=== PATIENT | female | born 1985 | race African-American/Black ===

== ENCOUNTER 2021-12-02 10:15 | Outpatient (CLI) | payer MEDICARE, BC, SELFPAY | END 2021-12-02 10:16 | disposition home or self-care (01) | LOC: AMB 12-12 11:22 | PROVIDERS: PCP Family Medicine; Visit Provider Family Medicine | DX: R53.1 Weakness (principal); E11.65 Type 2 diabetes mellitus with hyperglycemia | CPT/HCPCS: A0425; A0429 ==

== ENCOUNTER 2021-12-02 10:41 | Inpatient (IN) | payer MEDICARE, BC, SELFPAY ==
[2021-12-02] VITALS (27 sets, daily range): BP systolic 97–130; BP diastolic 27–95; PULSE 103–141; RESP 20–30; TEMP 36.1; O2SAT 99–100; BMI 23.8; BMI 21.8
--- NOTE | 2021-12-02 11:04 | CRLHL7_ITS ---
For Patients: As a result of the Cures Act, medical imaging exams and procedure reports are released immediately into your electronic medical record. You may view this report before your referring provider. If you have questions, please contact your health care provider. INDICATION: Shortness of breath TECHNIQUE: Chest 1 view. COMPARISON: None FINDINGS: The heart is normal in size. The pulmonary vasculature is within normal limits. The lungs clear. Bones are unremarkable. IMPRESSION: No acute process. Dictated by Bonny Frederick MD @ 12/02/2021 12:19:16 PM Dictated by: Bonny Frederick MD @ 12/02/2021 12:19:24 (Electronically Signed)
[2021-12-02] MEDS: 0.9 % SODIUM CHLORIDE 1000 ml 1,000 ML IV ×3 (11:08→15:15)
[2021-12-02] MEDS: METOCLOPRAMIDE HCL 10 MG in 0.9 % SODIUM CHLORIDE 100 ml 100 ML 306 MG IVPB (11:28)
[2021-12-02 11:29] LABS: HCO3 VBG 11 mmol/L (21-28); PCO2 VBG 35 mmHG (40-50); PO2 VBG 45.4 mmHG (25-47)
[2021-12-02 11:32] LABS: Appearance Urine Clear (Clear); Bilirubin Urine Negative (Negative); Blood Urine Negative (Negative); Color Urine Yellow (Yellow); Glucose Urine 2+ (Negative); Ketones Urine 4+ (Negative); Leukocyte Esterase Urine Negative (Negative); Nitrite Urine Negative (Negative); Protein Urine Negative (Negative); Specific Gravity Urine 1.015 (1.000-1.030); Urobilinogen Urine 0.2 (0.2-1.0); pH Urine 5.5 (5.0-8.5)
[2021-12-02 11:32] LABS: Basophils Percent Auto 0.4 % (0.0-3.0); Eosinophils Percent Auto 0.3 % (0.0-7.0); Hematocrit 36.8 % (33.0-51.0); Hemoglobin* 12.3 gm/dL (12.0-16.0); Immature Granulocytes Abs Auto 0.23 K/uL (0.00-0.30); Lymphocytes Percent Auto 30.1 % (20-44); Mean Corpuscular HGB Conc 33 gm/dL (32-36); Mean Corpuscular Hemoglobin 31 pg (26-34); Mean Corpuscular Volume 92 fL (80-100); Monocytes Percent Auto 2.4 % (0.0-11.0); Neutrophils Percent Auto 65.4 % (42.0-72.0); Platelet Count* 414 K/uL (140-440); Red Blood Count 4.02 m/uL (4.00-5.20); White Blood Count* 16.03 K/uL (4.50-11.00)
--- NOTE | 2021-12-02 11:35 | ED.GENADULT ---
HPI - General Adult General Date Seen: 12/02/21 Chief complaint: Diabetic Related Problem Stated complaint: blood sugar Time Seen by Provider: 12/02/21 11:03 Source: patient Limitations: altered mental status History of Present Illness HPI narrative: Patient is a 36-year-old woman with underlying insulin-dependent diabetes who presents feeling poorly. She has not checked her sugar she says for about 2 weeks, does not sound like she has used insulin for at least that long. She is a poor historian, looks extremely ill. Denies specific symptoms, is actively vomiting. Denies pain or fever. Is somnolent and does not provide much more history than that. Related Data Home Medications Medication Instructions Recorded Confirmed cyclobenzaprine 5 mg tablet 5 mg PO TID PRN 12/02/21 12/02/21 duloxetine 60 mg capsule,delayed 120 mg PO DAILY 12/02/21 12/02/21 release hydroxyzine HCl 25 mg tablet mg 12/02/21 insulin aspart U-100 100 unit/mL See Rx Instructions subcut .COMPLEX 12/02/21 12/02/21 (3 mL) subcutaneous pen insulin glargine 100 unit/mL (3 12 unit subcut BID 12/02/21 12/02/21 mL) subcutaneous pen (Lantus Solostar U-100 Insulin) Allergies Allergy/AdvReac Type Severity Reaction Status Date / Time No Known Drug Allergies Allergy Verified 12/02/21 11:06 Review of Systems Status of ROS: Reports: unobtainable due to medical condition [facility] Medical History (Updated 12/02/21 @ 14:38 by Funmilayo Benitez MD) Chronic midline low back pain with bilateral sciatica COVID-19 vaccine administered Depressed mood Gastroparesis Myopia of both eyes with astigmatism Noncompliance Pap smear for cervical cancer screening Severe malnutrition due to type 1 diabetes mellitus Uncontrolled type 1 diabetes mellitus Surgical History (Updated 12/02/21 @ 14:35 by Funmilayo Benitez MD) History of esophagogastroduodenoscopy (EGD) Exam Narrative: Exam Narrative: Vital signs as noted above. In general, somnolent ill-appearing woman. Smells strongly ketotic. Head: Normocephalic, atraumatic. Eyes: Pupils are equal reactive. Conjunctivae are anicteric. ENT: Mucous membranes are dry. Neck: Supple without lymphadenopathy. No meningeal signs. Heart: Tachycardic and regular. No murmur or rub. Lungs: Clear bilaterally. No increased work of breathing, crackles or wheezes. Abdomen: Soft and nontender. No organomegaly. Extremities: Well perfused. No edema. No calf tenderness. Pulses intact. Neurologic: Patient is somnolent, I am able to arouse her and she will answer a question or 2 at a time. Follows commands. Moves all extremities. Affect: Flat. Skin: Warm and dry. Well perfused. Const: Vital Signs, click to edit/add: Vital Signs - 24 hr 12/02/21 10:51 Pulse Rate [Left P ulse Oximeter] 115 H Respiratory Rate 20 Blood Pressure [Ri ght Upper Arm] 119/77 Pulse Oximetry 100 Oxygen Delivery Me thod Room Air Documenting provider has reviewed patient's vital signs: yes Course Course Hospital Course: An IV was immediately established and she was started on normal saline initially 1 L. An EKG showed a sinus tachycardia by my review, ventricular rate of 108 beats per minute. No acute ST segment changes. QT corrected 479 milliseconds. An initial blood sugar was too high for the glucometer. She had been given Zofran IM, and was continuing to vomit so she was given Reglan 10 mg IV. Labs including a CBC, venous gas, metabolic panel, magnesium, LFTs, CRP, troponin and a UA are all ordered. Thus far, urinalysis shows 2+ glucose and 4+ ketones. Her breath does smell strongly ketotic, clinically would suspect at least significant diabetic ketoacidosis, cause likely in part due to medical noncompliance, other potential causes pending. Reevaluation(s) Reevaluation #1: Patient felt significantly improved after L of fluid, she is more alert. First labs to come back or CBC which showed an elevated white blood cell count of 16, hemoglobin of 12.3. Blood gas showed a pH of 7.125, pCO2 of 35 and a venous bicarb of 11 representing a metabolic acidosis and compensatory respiratory alkalosis. Lactate was elevated at 4. Liver function tests showed an AST of 54, ALT of 31. Alk-phos minimally elevated at 157. Troponin was normal. CRP was 0.5. I waited on her metabolic panel before starting plan, to confirm that her potassium was normal. It turned at 4.8. CO2 markedly low at 9. BUN and creatinine were normal. I started a 2nd L of fluid at maintenance rates and then started an insulin drip at 6 units an hour. Patient actually requested a subcu dose of insulin because she says it helps her feel better, so I gave her 10 units of regular insulin subQ as well. She has been hemodynamically stable, level of alertness is increased with IV fluids here. I think it is reasonable to keep her here for management of this. I talked with Dr. Huitron and he agrees with admission here. Vital Signs Vital signs: Initial Vital Signs Pulse Rate 115 H 12/02/21 10:51 Pulse Rhythm 12/02/21 10:51 Pulse Strength 3+ Normal 12/02/21 10:51 Respiratory Rate 20 12/02/21 10:51 Blood Pressure 119/77 12/02/21 10:51 Blood Pressure Mean 91 12/02/21 10:51 Blood Pressure Position Supine 12/02/21 10:51 Pulse Oximetry 100 12/02/21 10:51 Oxygen Delivery Method 12/02/21 10:51 Vital Signs Pulse Rate 115 H 12/02/21 10:51 Respiratory Rate 20 12/02/21 10:51 Blood Pressure 119/77 12/02/21 10:51 Pulse Oximetry 100 12/02/21 10:51 Oxygen Delivery Method 12/02/21 10:51 Pulse Rate 115 H 12/02/21 10:51 Respiratory Rate 20 12/02/21 10:51 Blood Pressure 119/77 12/02/21 10:51 Pulse Oximetry 100 12/02/21 10:51 Oxygen Delivery Method 12/02/21 10:51 Medical Decision Making Lab Data Labs: Lab Results 12/02/21 12/02/21 12/02/21 Range/Units 11:05 11:20 11:20 WBC 16.03 H (4.50-11.00) K/uL RBC 4.02 (4.00-5.20) m/uL Hgb 12.3 (12.0-16.0) gm/dL Hct 36.8 (33.0-51.0) % MCV 92 (80-100) fL MCH 31 (26-34) pg MCHC 33 (32-36) gm/dL RDW Coeff of Kailey 13.0 (11.5-15.5) % Plt Count 414 (140-440) K/uL Neut % (Auto) 65.4 (42.0-72.0) % Lymph % (Auto) 30.1 (20-44) % [facility] % (Auto) 2.4 (0.0-11.0) % Eos % (Auto) 0.3 (0.0-7.0) % Baso % (Auto) 0.4 (0.0-3.0) % Neut # (Auto) 10.50 H (1.7-7.0) K/uL Lymph # (Auto) 4.80 H (0.90-2.90) K/uL [facility] # (Auto) 0.40 (0.00-0.90) K/UL Eos # (Auto) 0.00 (0.00-0.50) K/uL Baso # (Auto) 0.10 (0.00-0.30) K/uL Abs Immat Gran (auto) 0.23 (0.00-0.30) K/uL VBG pH (7.32-7.43) VBG pCO2 (40-50) mmHG VBG pO2 (25-47) mmHG VBG HCO3 (21-28) mmol/L Sodium 137 (135-149) mmol/L Potassium 4.8 (3.6-5.1) mmol/L Chloride 100 (96-114) mmol/L Carbon Dioxide 9 L* (20-32) mmol/L BUN 21 (5-24) mg/dL Creatinine 1.0 (0.5-1.5) mg/dL Estimated Creat Clear 60.92 Estimated GFR 74 ml/min Glucose 764 H* (60-115) mg/dL Lactate (0.5-1.9) mmol/L Calcium 9.6 (8.4-10.6) mg/dL Magnesium 1.9 (1.5-2.6) mg/dL Total Bilirubin 0.5 (0.1-1.5) mg/dL Direct Bilirubin 0.5 (0.0-0.5) mg/dL AST 54 H (12-35) U/L ALT 31 (4-35) U/L Alkaline Phosphatase 157 H (40-150) U/L Troponin I (0.01-0.04) ng/mL C-Reactive Protein < 0.5 L (0.5-1.0) mg/dL Total Protein 8.0 (6.0-8.3) g/dL Albumin 4.8 (3.3-5.0) g/dL TSH (0.270-4.200) uIU/mL Free T4 (0.70-1.85) ng/dL Urine Color Yellow (Yellow) Urine Appearance Clear (Clear) Urine pH 5.5 (5.0-8.5) Ur Specific [place] 1.015 (1.000-1.030) Urine Protein Negative (Negative) Urine Glucose (UA) 2+ A (Negative) Urine Ketones 4+ A (Negative) Urine Blood Negative (Negative) Urine Nitrite Negative (Negative) Urine Bilirubin Negative (Negative) Urine Urobilinogen 0.2 (0.2-1.0) Ur Leukocyte Esterase Negative (Negative) Urine RBC 0-2 (0-2) Urine WBC 0-2 (0-5) Ur Squamous Epith Cells Few (None-Few) Amorphous Sediment Few A (None) Urine Bacteria Few A (None) Ethyl Alcohol < 0.01 L (0.01-0.03) % SARS-CoV-2 (PCR) (Negative) Influenza Type A (PCR) (Negative) Influenza Type B (PCR) (Negative) RSV (PCR) (Negative) 12/02/21 12/02/21 12/02/21 Range/Units 11:20 11:20 11:20 WBC (4.50-11.00) K/uL RBC (4.00-5.20) m/uL Hgb (12.0-16.0) gm/dL Hct (33.0-51.0) % MCV (80-100) fL MCH (26-34) pg MCHC (32-36) gm/dL RDW Coeff of Kailey (11.5-15.5) % Plt Count (140-440) K/uL Neut % (Auto) (42.0-72.0) % Lymph % (Auto) (20-44) % [facility] % (Auto) (0.0-11.0) % Eos % (Auto) (0.0-7.0) % Baso % (Auto) (0.0-3.0) % Neut # (Auto) (1.7-7.0) K/uL Lymph # (Auto) (0.90-2.90) K/uL [facility] # (Auto) (0.00-0.90) K/UL Eos # (Auto) (0.00-0.50) K/uL Baso # (Auto) (0.00-0.30) K/uL Abs Immat Gran (auto) (0.00-0.30) K/uL VBG pH (7.32-7.43) VBG pCO2 (40-50) mmHG VBG pO2 (25-47) mmHG VBG HCO3 (21-28) mmol/L Sodium (135-149) mmol/L Potassium (3.6-5.1) mmol/L Chloride (96-114) mmol/L Carbon Dioxide (20-32) mmol/L BUN (5-24) mg/dL Creatinine (0.5-1.5) mg/dL Estimated Creat Clear Estimated GFR ml/min Glucose (60-115) mg/dL Lactate 4.0 H (0.5-1.9) mmol/L Calcium (8.4-10.6) mg/dL Magnesium (1.5-2.6) mg/dL Total Bilirubin (0.1-1.5) mg/dL Direct Bilirubin (0.0-0.5) mg/dL AST (12-35) U/L ALT (4-35) U/L Alkaline Phosphatase (40-150) U/L Troponin I < 0.01 L (0.01-0.04) ng/mL C-Reactive Protein (0.5-1.0) mg/dL Total Protein (6.0-8.3) g/dL Albumin (3.3-5.0) g/dL TSH 0.208 L (0.270-4.200) uIU/mL Free T4 2.15 H (0.70-1.85) ng/dL Urine Color (Yellow) Urine Appearance (Clear) Urine pH (5.0-8.5) Ur Specific [place] (1.000-1.030) Urine Protein (Negative) Urine Glucose (UA) (Negative) Urine Ketones (Negative) Urine Blood (Negative) Urine Nitrite (Negative) Urine Bilirubin (Negative) Urine Urobilinogen (0.2-1.0) Ur Leukocyte Esterase (Negative) Urine RBC (0-2) Urine WBC (0-5) Ur Squamous Epith Cells (None-Few) Amorphous Sediment (None) Urine Bacteria (None) Ethyl Alcohol (0.01-0.03) % SARS-CoV-2 (PCR) (Negative) Influenza Type A (PCR) (Negative) Influenza Type B (PCR) (Negative) RSV (PCR) (Negative) 12/02/21 12/02/21 Range/Units 11:20 11:30 WBC (4.50-11.00) K/uL RBC (4.00-5.20) m/uL Hgb (12.0-16.0) gm/dL Hct (33.0-51.0) % MCV (80-100) fL MCH (26-34) pg MCHC (32-36) gm/dL RDW Coeff of Kailey (11.5-15.5) % Plt Count (140-440) K/uL Neut % (Auto) (42.0-72.0) % Lymph % (Auto) (20-44) % [facility] % (Auto) (0.0-11.0) % Eos % (Auto) (0.0-7.0) % Baso % (Auto) (0.0-3.0) % Neut # (Auto) (1.7-7.0) K/uL Lymph # (Auto) (0.90-2.90) K/uL [facility] # (Auto) (0.00-0.90) K/UL Eos # (Auto) (0.00-0.50) K/uL Baso # (Auto) (0.00-0.30) K/uL Abs Immat Gran (auto) (0.00-0.30) K/uL VBG pH 7.125 L* (7.32-7.43) VBG pCO2 35 L (40-50) mmHG VBG pO2 45.4 (25-47) mmHG VBG HCO3 11 L (21-28) mmol/L Sodium (135-149) mmol/L Potassium (3.6-5.1) mmol/L Chloride (96-114) mmol/L Carbon Dioxide (20-32) mmol/L BUN (5-24) mg/dL Creatinine (0.5-1.5) mg/dL Estimated Creat Clear Estimated GFR ml/min Glucose (60-115) mg/dL Lactate (0.5-1.9) mmol/L Calcium (8.4-10.6) mg/dL Magnesium (1.5-2.6) mg/dL Total Bilirubin (0.1-1.5) mg/dL Direct Bilirubin (0.0-0.5) mg/dL AST (12-35) U/L ALT (4-35) U/L Alkaline Phosphatase (40-150) U/L Troponin I (0.01-0.04) ng/mL C-Reactive Protein (0.5-1.0) mg/dL Total Protein (6.0-8.3) g/dL Albumin (3.3-5.0) g/dL TSH (0.270-4.200) uIU/mL Free T4 (0.70-1.85) ng/dL Urine Color (Yellow) Urine Appearance (Clear) Urine pH (5.0-8.5) Ur Specific [place] (1.000-1.030) Urine Protein (Negative) Urine Glucose (UA) (Negative) Urine Ketones (Negative) Urine Blood (Negative) Urine Nitrite (Negative) Urine Bilirubin (Negative) Urine Urobilinogen (0.2-1.0) Ur Leukocyte Esterase (Negative) Urine RBC (0-2) Urine WBC (0-5) Ur Squamous Epith Cells (None-Few) Amorphous Sediment (None) Urine Bacteria (None) Ethyl Alcohol (0.01-0.03) % SARS-CoV-2 (PCR) Negative SARS-CoV-2 (Negative) Influenza Type A (PCR) Negative PCR FLU A (Negative) Influenza Type B (PCR) Negative PCR FLU B (Negative) RSV (PCR) Negative PCR RSV (Negative)
[2021-12-02 11:39] LABS: Slide Review Reflex No
[2021-12-02 11:41] LABS: pH VBG 7.125 (7.32-7.43)
[2021-12-02 11:46] LABS: Amorphous Sediment Urine Few; Bacteria Urine Few; RBC Urine 0-2 (0-2); Squamous Epithelial Cell Urine Few (None-Few); WBC Urine 0-2 (0-5)
[2021-12-02 11:56] LABS: Albumin* 4.8 g/dL (3.3-5.0); Chloride* 100 mmol/L (96-114)
[2021-12-02 11:57] LABS: Potassium* 4.8 mmol/L (3.6-5.1); Sodium* 137 mmol/L (135-149)
[2021-12-02 11:59] LABS: Est. Creatinine Clearance* 60.92; Estimated Glomerular Filt Rate 74 ml/min
[2021-12-02 12:00] LABS: Alanine Aminotransferase* 31 U/L (4-35); Alkaline Phosphatase* 157 U/L (40-150); Aspartate Amino Transferase* 54 U/L (12-35); Bilirubin Direct* 0.5 mg/dL (0.0-0.5); Bilirubin Total* 0.5 mg/dL (0.1-1.5); Blood Urea Nitrogen* 21 mg/dL (5-24); Calcium* 9.6 mg/dL (8.4-10.6); Magnesium* 1.9 mg/dL (1.5-2.6)
[2021-12-02 12:10] LABS: C Reactive Protein* < 0.5 mg/dL (0.5-1.0); Ethanol* < 0.01 % (0.01-0.03)
[2021-12-02 12:11] LABS: Carbon Dioxide* 9 mmol/L (20-32); Glucose* 764 mg/dL (60-115)
[2021-12-02 12:12] LABS: Troponin I* < 0.01 ng/mL (0.01-0.04)
[2021-12-02 12:41] LABS: TSH With Reflex to FT4* 0.208 uIU/mL (0.270-4.200)
[2021-12-02 13:07] LABS: Free T4 Free Thyroxine* 2.15 ng/dL (0.70-1.85)
[2021-12-02 13:07] LABS: PCR FLU A Negative PCR FLU A (Negative); PCR FLU B Negative PCR FLU B (Negative); PCR RSV Negative PCR RSV (Negative)
[2021-12-02 13:08] LABS: SARS PCR* Negative SARS-CoV-2 (Negative)
[2021-12-02] MEDS: INSULIN INF 100 UNIT/100 ML 100 UNIT/100 ML BAG 6 UNIT IVPB (14:18)
[2021-12-02 14:58] LABS: HCO3 VBG 7 mmol/L (21-28); PO2 VBG 51.8 mmHG (25-47)
[2021-12-02 14:59] LABS: PCO2 VBG 26 mmHG (40-50)
[2021-12-02 15:00] LABS: pH VBG 7.015 (7.32-7.43)
--- NOTE | 2021-12-02 15:11 | W.PC.EDHO ---
Primary Language: Preferred Language: Orientation Status: [x] Alert & Oriented [] Slight Confusion [] Known Dx Dementia Transfers By: [x] Assist of 1 [] Assist of 2 [] Lift Active Medications Generic Name Dose Route Start Last Admin Trade Name Freq PRN Reason Stop Dose Admin Insulin Human (Reg)/Sodium Chloride 100 unit in 100 mls @ 0 mls/hr 12/02/21 12:45 12/02/21 14:18 Insulin Inf 100 Unit/100 Ml IVPB 6 mls/hr .Q0M SIMRAN Administration Per Protocol Discontinued Medications Generic Name Dose Route Start Last Admin Trade Name Freq PRN Reason Stop Dose Admin Sodium Chloride 1,000 mls @ 1,000 mls/hr 12/02/21 11:15 12/02/21 12:09 0.9 % Sodium Chloride 1000 Ml IV 12/02/21 12:14 Infused .Q1H SIMRAN Infusion Metoclopramide HCl 10 mg/ 102 mls @ 306 mls/hr 12/02/21 11:19 12/02/21 12:09 Sodium Chloride IVPB 12/02/21 11:20 Infused ONCE ONE Infusion Sodium Chloride 1,000 mls @ 1,000 mls/hr 12/02/21 12:45 12/02/21 14:24 0.9 % Sodium Chloride 1000 Ml IV 12/02/21 13:44 Infused .Q1H SIMRAN Infusion Insulin Human Regular 10 unit 12/02/21 13:47 12/02/21 14:16 Insulin Regular 100 Unit/Ml Inj SUBCUT 12/02/21 13:48 10 unit ONCE ONE Administration Description of Symptoms ED Triage Present Problem BIBA from home for hyperglycemia. Hx of DM on Description novolog. Reports taking insulin last night and not feeling well this AM so did not take anything. Nausea and vomiting. Lethargic. Denies pain. ED Triage Date of Onset of 12/02/21 Symptoms Female History Hx Last Menstrual Period 11/20/21 Patient No IV Insertion/Site Date of IV Line Insertion [ 12/02/21 Right Antecubital] Oxygen Administration Pulse Oximetry 100 Oxygen Delivery Method Room Air
[2021-12-02 15:12] LABS: Chloride* 111 mmol/L (96-114); Sodium* 145 mmol/L (135-149)
[2021-12-02 15:14] LABS: Creatinine* 1.1 mg/dL (0.5-1.5); Est. Creatinine Clearance* 55.38; Estimated Glomerular Filt Rate 66 ml/min
[2021-12-02 15:15] LABS: Blood Urea Nitrogen* 21 mg/dL (5-24)
--- NOTE | 2021-12-02 15:15 | PM.IMHP1 ---
Hospitalist- H&P: HPI History of Present Illness Time Seen by Provider: 14:45 Date Seen: 12/02/21 Chief complaint: blood sugar Narrative: Bunny Solis is a 36 year old female with type 1 DM and h/o noncompliance who presented through ER for nausea, increased frequency of urination, and dizziness. She tells me there was a problem with her insurance and she was unable to get her glucose sensor a few weeks ago. She says she was unable to check her sugars because of this. She last took insulin on Saturday, and has on frequent occasion skipped either the long or short acting insulin because she didn't feel like eating. Within the last week, she was started on hydroxyzine for anxiety. She thinks that using this has contributed to feeling dizzy and nauseous. She had something to eat last night. This morning she tried to drink pedialyte, but got too nauseous to finish it. She complains of chronic low back pain that goes down the backs of both buttocks and legs just above knees. This is chronic and is unchanged from its usual intensity and character. Review of Systems Status of ROS: Reports: unobtainable due to medical condition (States she gets dizzy and nauseous when talking.) [facility] Medical History (Updated 12/02/21 @ 16:31 by Funmilayo Beintez MD) Chronic midline low back pain with bilateral sciatica COVID-19 vaccine administered Depressed mood Gastroparesis Myopia of both eyes with astigmatism Noncompliance Pap smear for cervical cancer screening Severe malnutrition due to type 1 diabetes mellitus Uncontrolled type 1 diabetes mellitus Surgical History (Updated 12/02/21 @ 14:35 by Funmilayo Benitez MD) History of esophagogastroduodenoscopy (EGD) Social History (Updated 12/02/21 @ 15:21 by Funmilayo Benitez MD) Narrative: Has three children: 20y/o, 15y/o, 12y/o. Smoking Status: Never smoker How often do you have a drink containing alcohol: never AUDIT-C Alcohol total score: 0 Non-prescribed substance use: denies use Meds Home Medications and Allergies Home Medications Medication Instructions Recorded Confirmed Type cyclobenzaprine 5 mg tablet 5 mg PO TID PRN 12/02/21 12/02/21 History duloxetine 60 mg capsule,delayed 120 mg PO DAILY 12/02/21 12/02/21 History release hydroxyzine HCl 25 mg tablet mg 12/02/21 History insulin aspart U-100 100 unit/mL See Rx Instructions subcut .COMPLEX 12/02/21 12/02/21 History (3 mL) subcutaneous pen insulin glargine 100 unit/mL (3 12 unit subcut BID 12/02/21 12/02/21 History mL) subcutaneous pen (Lantus Solostar U-100 Insulin) Allergies Allergy/AdvReac Type Severity Reaction Status Date / Time No Known Drug Allergies Allergy Verified 12/02/21 11:06 Exam Narrative: Exam Narrative: General: Appears ill. Awake, alert, oriented x3. Thin, cachectic. HEENT: Normocephalic atraumatic, pupils equally round and reactive to light and accommodation. Oropharynx clear. Mucous membranes are very dry. No cervical lymphadenopathy, thyromegaly or carotid bruits. No JVD. Cardiovascular: Tachycardic, regular. No murmurs, gallops, or rubs. Chest: Mildly tachypneic. Clear to auscultation bilaterally. No crackles or wheezes. Abdomen: Bowel sounds present. Soft, nondistended, nontender. No hepatosplenomegaly or masses. Back: Nontender to palpation. Straight leg raises are negative bilaterally. Extremities: No edema, no cyanosis or clubbing. Skin: No jaundice, no pallor, no rashes. Neuro: Moves all extremities. Able to get commode at the bedside by herself. Const: Vital Signs, click to edit/add: Vital Signs - 24 hr 12/02/21 10:51 Pulse Rate [Left P ulse Oximeter] 115 H Respiratory Rate 20 Blood Pressure [Ri ght Upper Arm] 119/77 Pulse Oximetry 100 Oxygen Delivery Me thod Room Air Documenting provider has reviewed patient's vital signs: yes Hospitalist - H&P: Result Labs Labs: Short CBC 12/02/21 Range/Units 11:20 WBC 16.03 H (4.50-11.00) K/uL Hgb 12.3 (12.0-16.0) gm/dL Hct 36.8 (33.0-51.0) % Plt Count 414 (140-440) K/uL BMP 12/02/21 11:20 Sodium 137 Potassium 4.8 Chloride 100 Carbon Dioxide 9 L* BUN 21 Creatinine 1.0 Glucose 764 H* Calcium 9.6 Cardiac Enzymes 12/02/21 Range/Units 11:20 Troponin I < 0.01 L (0.01-0.04) ng/mL Liver Function 12/02/21 Range/Units 11:20 Total Bilirubin 0.5 (0.1-1.5) mg/dL Direct Bilirubin 0.5 (0.0-0.5) mg/dL AST 54 H (12-35) U/L ALT 31 (4-35) U/L Alkaline Phosphatase 157 H (40-150) U/L Albumin 4.8 (3.3-5.0) g/dL Urine 12/02/21 Range/Units 11:05 Urine Color Yellow (Yellow) Urine Appearance Clear (Clear) Urine pH 5.5 (5.0-8.5) Ur Specific [place] 1.015 (1.000-1.030) Urine Protein Negative (Negative) Urine Glucose (UA) 2+ A (Negative) Ordering Physician: Lisette Middleton MD Date of Service: 12/02/21 Procedure(s): XR chest 1V portable Accession Number(s): [id number] cc: Lisette Middleton MD~ For Patients: As a result of the Cures Act, medical imaging exams and procedure reports are released immediately into your electronic medical record. You may view this report before your referring provider. If you have questions, please contact your health care provider. INDICATION: Shortness of breath TECHNIQUE: Chest 1 view. COMPARISON: None FINDINGS: The heart is normal in size. The pulmonary vasculature is within normal limits. The lungs clear. Bones are unremarkable. IMPRESSION: No acute process. Dictated by Bonny Frederick MD @ 12/02/2021 12:19:16 PM Dictated by: Bonny Frederick MD @ 12/02/2021 12:19:24 (Electronically Signed) EKG: Sinus tachycardia, HR 108 beats per minute.? No acute ST segment changes.? Prolonged QTc at 479 milliseconds.? Assessment and Plan Assessment and plan (1) DKA, type 1: Problem comment: Secondary to noncompliance with insulin and blood glucose checks. Status: Acute Assessment and Plan: I do not see any evidence of infection. Continue to monitor for any evidence of infection. (2) Sinus tachycardia: Problem comment: secondary to dehydration, DKA Status: Acute (3) Hypovolemia dehydration: Problem comment: secondary to DKA Status: Acute (4) Uncontrolled type 1 diabetes mellitus: Status: Acute (5) Elevated serum free T4 level: Problem comment: Also mildly elevated TSH. Possibly sick euthyroid. Recheck as outpatient. Status: Acute (6) Noncompliance: Status: Acute Plan Admit to CCU on Insulin drip with q1h blood sugars and q2h VBG, BMP. Start maintenance IVF with postassium. She has had 3L IVF boluses. Tachycaria improving, not yet resolved. Still appears clinically dry. Give another IVF bolus. NPO until nausea resolves and blood glucose less than 300. Monitor telemetry, UO, cont pulse ox.
[2021-12-02 15:24] LABS: Carbon Dioxide* 5 mmol/L (20-32); Glucose* 700 mg/dL (60-115)
[2021-12-02] MEDS: 5 % DEX/0.45 SOD CHL+KCL20 mEq 1,000 ML 125 ML IV (15:53)
[2021-12-02] MEDS: LACTATED RINGERS 1000 ML 1,000 ML IV ×3 (16:32→20:42)
--- NOTE | 2021-12-02 16:59 | PC.NURSE ---
Critical labs of pH, glucose, and CO2 all reported to Dr. Huitron/Dr. Benitez upon notification from lab.
[2021-12-02 17:21] LABS: HCO3 VBG 13 mmol/L (21-28); PCO2 VBG 36 mmHG (40-50); PO2 VBG 30.9 mmHG (25-47)
[2021-12-02 17:23] LABS: pH VBG 7.148 (7.32-7.43)
[2021-12-02 17:38] LABS: Chloride* 119 mmol/L (96-114); Sodium* 149 mmol/L (135-149)
[2021-12-02 17:40] LABS: Est. Creatinine Clearance* 60.92; Estimated Glomerular Filt Rate 74 ml/min
[2021-12-02 17:41] LABS: Blood Urea Nitrogen* 20 mg/dL (5-24); Calcium* 8.7 mg/dL (8.4-10.6); Carbon Dioxide* 11 mmol/L (20-32); Glucose* 350 mg/dL (60-115)
[2021-12-02] MEDS: ONDANSETRON 2 MG/ML inj 4 MG IVP (17:58)
[2021-12-02] MEDS: INSULIN INF 100 UNIT/100 ML 100 UNIT/100 ML BAG 6.5 UNIT IVPB (19:30)
[2021-12-02 19:49] LABS: HCO3 VBG 18 mmol/L (21-28); PCO2 VBG 37 mmHG (40-50); pH VBG 7.302 (7.32-7.43)
--- NOTE | 2021-12-02 19:55 | PC.NURSE ---
Pt alert and able to verbalize needs but prefers lights dimmed and c/o n/v with position changes. HR= 130 on arrival and pt has since received two 1L boluses of LR.
--- NOTE | 2021-12-02 20:02 | PC.NURSE ---
Insulin drip titrated per protocol. Pt c/o extreme thirst and having frequent urination. Zofran given for nausea and clear emesis x1. BG currently 190
[2021-12-02 20:08] LABS: Chloride* 116 mmol/L (96-114); Potassium* 4.2 mmol/L (3.6-5.1); Sodium* 145 mmol/L (135-149)
[2021-12-02 20:11] LABS: Blood Urea Nitrogen* 16 mg/dL (5-24); Carbon Dioxide* 17 mmol/L (20-32); Creatinine* 0.8 mg/dL (0.5-1.5); Est. Creatinine Clearance* 76.15; Estimated Glomerular Filt Rate 97 ml/min; Glucose* 185 mg/dL (60-115)
[2021-12-02] MEDS: PROCHLORPERAZINE 5 MG/ML VIAL IV (20:54)
[2021-12-02 21:25] LABS: HCO3 VBG 19 mmol/L (21-28); PCO2 VBG 38 mmHG (40-50); PO2 VBG 35.1 mmHG (25-47); pH VBG 7.298 (7.32-7.43)
[2021-12-02 21:42] LABS: Chloride* 116 mmol/L (96-114); Potassium* 3.7 mmol/L (3.6-5.1); Sodium* 145 mmol/L (135-149)
[2021-12-02 21:44] LABS: Creatinine* 0.7 mg/dL (0.5-1.5); Est. Creatinine Clearance* 87.03; Estimated Glomerular Filt Rate 114 ml/min
[2021-12-02 21:45] LABS: Blood Urea Nitrogen* 14 mg/dL (5-24); Calcium* 8.7 mg/dL (8.4-10.6); Carbon Dioxide* 16 mmol/L (20-32); Glucose* 137 mg/dL (60-115)
[2021-12-02] MEDS: POTASSIUM CHLORIDE 10 MEQ/100 ML PIGGYBACK 100 MEQ IVPB (22:16)
[2021-12-03] VITALS (9 sets, daily range): BP systolic 106–132; BP diastolic 69–85; PULSE 72–98; RESP 20; TEMP 36.4–37.5; O2SAT 95–100
[2021-12-03] MEDS: 5 % DEX/0.45 SOD CHL+KCL20 mEq 1,000 ML 125 ML IV ×2 (01:36→09:59)
[2021-12-03] MEDS: ONDANSETRON 2 MG/ML inj 4 MG IVP ×3 (01:36→22:31)
[2021-12-03 01:37] LABS: HCO3 VBG 17 mmol/L (21-28); PCO2 VBG 32 mmHG (40-50); PO2 VBG 47.4 mmHG (25-47); pH VBG 7.346 (7.32-7.43)
[2021-12-03 01:52] LABS: Chloride* 111 mmol/L (96-114); Potassium* 3.9 mmol/L (3.6-5.1); Sodium* 140 mmol/L (135-149)
[2021-12-03 01:55] LABS: Blood Urea Nitrogen* 12 mg/dL (5-24); Calcium* 8.8 mg/dL (8.4-10.6); Carbon Dioxide* 15 mmol/L (20-32); Creatinine* 0.7 mg/dL (0.5-1.5); Est. Creatinine Clearance* 87.03; Estimated Glomerular Filt Rate 114 ml/min; Glucose* 176 mg/dL (60-115)
[2021-12-03] MEDS: PROCHLORPERAZINE 5 MG/ML VIAL IV ×2 (02:41→09:14)
--- NOTE | 2021-12-03 02:50 | PC.NURSE ---
called Dr Stanley with lab results, Dr stanley verbal order if no need to adjust insulin drip with next BG then recheck BG in 2 hours to allow patient to sleep.
[2021-12-03] MEDS: INSULIN INF 100 UNIT/100 ML 100 UNIT/100 ML BAG IVPB (03:13)
--- NOTE | 2021-12-03 04:40 | PC.NURSE ---
[id number]: patient fatigued most of this shift, tolerated ambulation to the BR well, nausea resolved completely with PRN Compazine but returned in the middle of the night, several emesis episodes. BG as charted, see insulin drip charting for titration. tele shows NSR, patient tolerating water and tried some chicken broth and several hours later had an emesis.
[2021-12-03] MEDS: OMEPRAZOLE 20 MG CAPSULE DR 40 MG PO (06:09)
[2021-12-03 07:16] LABS: Basophils Percent Auto 0.1 % (0.0-3.0); Hematocrit 30.2 % (33.0-51.0); Hemoglobin* 10.4 gm/dL (12.0-16.0); Immature Granulocytes Abs Auto 0.03 K/uL (0.00-0.30); Lymphocytes Percent Auto 12.3 % (20-44); Mean Corpuscular HGB Conc 34 gm/dL (32-36); Mean Corpuscular Hemoglobin 30 pg (26-34); Mean Corpuscular Volume 88 fL (80-100); Monocytes Percent Auto 5.1 % (0.0-11.0); Neutrophils Percent Auto 82.3 % (42.0-72.0); Platelet Count* 337 K/uL (140-440); Red Blood Count 3.43 m/uL (4.00-5.20); White Blood Count* 14.68 K/uL (4.50-11.00)
[2021-12-03 07:19] LABS: Slide Review Reflex No
[2021-12-03 07:24] LABS: Chloride* 110 mmol/L (96-114); Potassium* 3.6 mmol/L (3.6-5.1); Sodium* 141 mmol/L (135-149)
[2021-12-03 07:27] LABS: Blood Urea Nitrogen* 10 mg/dL (5-24); Carbon Dioxide* 21 mmol/L (20-32); Creatinine* 0.7 mg/dL (0.5-1.5); Est. Creatinine Clearance* 87.03; Estimated Glomerular Filt Rate 114 ml/min
[2021-12-03 07:28] LABS: Glucose* 139 mg/dL (60-115); Magnesium* 1.6 mg/dL (1.5-2.6)
[2021-12-03] MEDS: DULOXETINE 30 MG CAPSULE DR 120 MG PO (09:59)
[2021-12-03] MEDS: METOCLOPRAMIDE 10 MG TABLET PO ×2 (11:57→17:48)
--- NOTE | 2021-12-03 14:30 | PM.IMPN1 ---
Progress Note: A&P Assessment and plan (1) DKA, type 1: Problem details: Secondary to noncompliance with insulin and blood glucose checks. Status: Acute (2) Uncontrolled type 1 diabetes mellitus: Problem details: Diabetes has been challenging to control due to inconsistent ability to eat and drink combined with inconsistencies in glucose monitoring and insulin administration Status: Acute (3) Noncompliance: Problem details: Concern for mental health factors contributing to noncompliance. Did have recent December 18 mental health evaluation at [facility]. Status: Acute (4) Gastroparesis: Problem details: Resume metoclopramide to see if she can tolerate p.o. food and fluid. Otherwise may need to revisit NG feedings Status: Acute Plan Continue in hospital for ongoing management of diabetes and gastroparesis with vomiting. Transition from IV insulin to subcutaneous insulin with basal, bolus and corrective doses of subcutaneous insulin. Time Spent With Patient Total time spent: Total time spent today is 50 minutes in critical care evaluation and treatment. Subjective Date Seen: 12/03/21 Interval history: 36-year-old female seen in followup of hospitalization for DKA. Recently patient reports that she has had a lot of nausea and vomiting. She has not been eating or drinking much and she stopped taking her insulin as well. She has not checked her blood sugars because she was unable to obtain supplies for a continuous glucose monitor. She has a glue commented that she can use trips with but she tells me she was not checking her blood sugar with that. Patient has had recurrent episodes of hospitalization for DKA. These appear to be caused by combination of factors. She has had recurrent problems with nausea and vomiting over the years. These were associated with episodes of DKA. The nausea and vomiting has been diagnosed as being caused by diabetic gastroparesis. She has been on Reglan for that. One year ago she was fed through a feeding tube because she was unable to maintain hydration and nutrition with oral intake. About a year ago that feeding tube was removed and she says she has been generally doing fairly well since that time until the last few days. She has had a few hospitalizations over the past year for DKA. These are often associated with lack of checking glucose levels and administering insulin. Overnight she was placed on an insulin drip and given IV fluids for resuscitation. With this her laboratory findings of DKA have much improved. This morning hours she was still reports severe nausea she has had very poor p.o. intake. she had couple emesis this morning. Nonbloody. She has not had any fever. No abdominal pain. She is having heartburn from recurrent vomiting however. She reports profound fatigue as well. Exam Narrative: Exam Narrative: She is alert but tired appearing. She is oriented to her circumstances. Respirations are clear to auscultation. Cardiovascular: S1, S2, regular rate and rhythm. No murmur gallop or rub. Abdomen: Bowel sounds active. Abdomen is soft without tenderness or mass. Extremities without edema. Const: Vital Signs, click to edit/add: Vital Signs - 24 hr 12/02/21 16:01 12/02/21 16:02 12/02/21 16:07 Temperature 96.9 F L Pulse Rate [Left A pical] 128 H Pulse Rate [Left P ulse Oximeter] Respiratory Rate 20 Blood Pressure [Le ft Arm] 111/73 Blood Pressure [Ri ght Upper Arm] Pulse Oximetry 100 100 100 Oxygen Delivery Nc thod Room Air 12/02/21 18:13 12/02/21 16:39 12/02/21 18:51 Temperature 96.9 F L 97 F L Pulse Rate [Left A pical] 130 H 110 H Pulse Rate [Left P ulse Oximeter] Respiratory Rate 20 20 20 Blood Pressure [Le ft Arm] 111/73 130/86 Blood Pressure [Ri ght Upper Arm] Pulse Oximetry 100 100 100 Oxygen Delivery Nc thod Room Air Room Air Room Air 12/02/21 14:45 12/02/21 15:00 12/02/21 15:15 Temperature Pulse Rate [Left A pical] Pulse Rate [Left P ulse Oximeter] 134 H 141 H 131 H Respiratory Rate 24 24 28 H Blood Pressure [Le ft Arm] Blood Pressure [Ri ght Upper Arm] 121/80 109/95 H 125/69 Pulse Oximetry 100 100 100 Oxygen Delivery Me thod Room Air Room Air Room Air 12/02/21 19:00 12/02/21 19:00 12/02/21 23:00 Temperature 97 F L Pulse Rate [Left A pical] Pulse Rate [Left P ulse Oximeter] Respiratory Rate 20 Blood Pressure [Le ft Arm] 127/85 Blood Pressure [Ri ght Upper Arm] Pulse Oximetry 100 100 100 Oxygen Delivery Nc thod Room Air 12/02/21 23:00 12/02/21 23:00 12/03/21 02:46 Temperature 97 F L 99.2 F Pulse Rate [Left A pical] 103 H 98 Pulse Rate [Left P ulse Oximeter] Respiratory Rate 20 20 20 Blood Pressure [Le ft Arm] 99/63 125/82 Blood Pressure [Ri ght Upper Arm] Pulse Oximetry 99 99 Oxygen Delivery Me thod Room Air Room Air 12/03/21 03:00 12/03/21 07:00 12/03/21 07:00 Temperature Pulse Rate [Left A pical] 72 Pulse Rate [Left P ulse Oximeter] Respiratory Rate 20 Blood Pressure [Le ft Arm] Blood Pressure [Ri ght Upper Arm] Pulse Oximetry 100 100 Oxygen Delivery Me thod 12/03/21 07:00 12/03/21 11:00 12/03/21 11:00 Temperature 99.5 F 98.4 F Pulse Rate [Left A pical] 76 93 Pulse Rate [Left P ulse Oximeter] Respiratory Rate 20 20 Blood Pressure [Le ft Arm] 119/81 124/78 Blood Pressure [Ri ght Upper Arm] Pulse Oximetry 100 100 100 Oxygen Delivery Me thod Room Air Room Air Labs Labs: Laboratory Results - last 24 hr 12/02/21 12/02/21 12/02/21 14:54 14:54 17:12 WBC RBC Hgb Hct MCV MCH MCHC RDW Coeff of Kailey Plt Count Neut % (Auto) Lymph % (Auto) [place] % (Auto) Eos % (Auto) Baso % (Auto) Neut # (Auto) Lymph # (Auto) [place] # (Auto) Eos # (Auto) Baso # (Auto) Abs Immat Gran (auto) VBG pH 7.015 L* Cancelled VBG pCO2 26 L Cancelled VBG pO2 51.8 H Cancelled VBG HCO3 7 L Cancelled Sodium 145 Potassium 5.0 Chloride 111 Carbon Dioxide 5 L* BUN 21 Creatinine 1.1 Estimated Creat Clear 55.38 Estimated GFR 66 Glucose 700 H* Calcium 9.0 Magnesium 12/02/21 12/02/21 12/02/21 17:12 17:12 19:45 WBC RBC Hgb Hct MCV MCH MCHC RDW Coeff of Kailey Plt Count Neut % (Auto) Lymph % (Auto) [place] % (Auto) Eos % (Auto) Baso % (Auto) Neut # (Auto) Lymph # (Auto) [place] # (Auto) Eos # (Auto) Baso # (Auto) Abs Immat Gran (auto) VBG pH 7.148 L* 7.302 L VBG pCO2 36 L 37 L VBG pO2 30.9 26.0 VBG HCO3 13 L 18 L Sodium 149 Potassium 5.0 Chloride 119 H Carbon Dioxide 11 L BUN 20 Creatinine 1.0 Estimated Creat Clear 60.92 Estimated GFR 74 Glucose 350 H Calcium 8.7 Magnesium 12/02/21 12/02/21 12/02/21 19:45 21:21 21:21 WBC RBC Hgb Hct MCV MCH MCHC RDW Coeff of Kailey Plt Count Neut % (Auto) Lymph % (Auto) [place] % (Auto) Eos % (Auto) Baso % (Auto) Neut # (Auto) Lymph # (Auto) [place] # (Auto) Eos # (Auto) Baso # (Auto) Abs Immat Gran (auto) VBG pH 7.298 L VBG pCO2 38 L VBG pO2 35.1 VBG HCO3 19 L Sodium 145 145 Potassium 4.2 3.7 Chloride 116 H 116 H Carbon Dioxide 17 L 16 L BUN 16 14 Creatinine 0.8 0.7 Estimated Creat Clear 76.15 87.03 Estimated GFR 97 114 Glucose 185 H 137 H Calcium 9.0 8.7 Magnesium 12/03/21 12/03/21 12/03/21 01:29 01:29 06:43 WBC 14.68 H RBC 3.43 L Hgb 10.4 L Hct 30.2 L MCV 88 MCH 30 MCHC 34 RDW Coeff of Kailey 13.0 Plt Count 337 Neut % (Auto) 82.3 H Lymph % (Auto) 12.3 L [place] % (Auto) 5.1 Eos % (Auto) 0.0 Baso % (Auto) 0.1 Neut # (Auto) 12.10 H Lymph # (Auto) 1.80 [place] # (Auto) 0.70 Eos # (Auto) 0.00 Baso # (Auto) 0.00 Abs Immat Gran (auto) 0.03 VBG pH 7.346 VBG pCO2 32 L VBG pO2 47.4 H VBG HCO3 17 L Sodium 140 Potassium 3.9 Chloride 111 Carbon Dioxide 15 L BUN 12 Creatinine 0.7 Estimated Creat Clear 87.03 Estimated GFR 114 Glucose 176 H Calcium 8.8 Magnesium 12/03/21 06:43 WBC RBC Hgb Hct MCV MCH MCHC RDW Coeff of Kailey Plt Count Neut % (Auto) Lymph % (Auto) [place] % (Auto) Eos % (Auto) Baso % (Auto) Neut # (Auto) Lymph # (Auto) [place] # (Auto) Eos # (Auto) Baso # (Auto) Abs Immat Gran (auto) VBG pH VBG pCO2 VBG pO2 VBG HCO3 Sodium 141 Potassium 3.6 Chloride 110 Carbon Dioxide 21 BUN 10 Creatinine 0.7 Estimated Creat Clear 87.03 Estimated GFR 114 Glucose 139 H Calcium 9.0 Magnesium 1.6
[2021-12-03] MEDS: 5 % DEXTROSE IN LAC RINGER'S 1,000 ML 75 ML IV (16:15)
--- NOTE | 2021-12-03 18:39 | PC.NURSE ---
Pt very tired today, states she hasn't slept well d/t n/v and accuchecks Q1H throughout the night. Insulin drip discontinued at 0900 and pt now getting scheduled accuchecks 5x daily. Maintenance fluids changed to D5 in LR. Pt continues to c/o ongoing and unresolving nausea as well as emesis throughout the day. Zofran and Metoclopramide given PRN with little relief. Pt declined aromatherapy and is intermittently utilizing a cool washcloth to the forehead. Tolerates small amounts of water and ice chips but states other clear liquids do not appeal to her at this time. BM this afternoon. Last BG= 192.
[2021-12-03] MEDS: SENNOSIDES 1 TAB TABLET 2 TAB PO (21:07)
[2021-12-04] VITALS (13 sets, daily range): BP systolic 125–138; BP diastolic 74–95; PULSE 54–83; RESP 16–18; TEMP 36.2–37; O2SAT 99–100; BMI 21.9
[2021-12-04] MEDS: OMEPRAZOLE 20 MG CAPSULE DR 40 MG PO (06:11)
--- NOTE | 2021-12-04 06:43 | PC.NURSE ---
patient up with SBA, unable to tolerate much PO intake, continues to have nausea and vomiting but much less frequent. 1X emesis overnight. patient alert/oriented. polyuria has decreased.
[2021-12-04 07:45] LABS: Chloride* 104 mmol/L (96-114); Sodium* 137 mmol/L (135-149)
[2021-12-04 07:46] LABS: Basophils Absolute Auto 0.01 K/uL (0.00-0.30); Basophils Percent Auto 0.1 % (0.0-3.0); Hemoglobin* 10.4 gm/dL (12.0-16.0); Immature Granulocytes Abs Auto 0.02 K/uL (0.00-0.30); Lymphocytes Percent Auto 15.5 % (20-44); Mean Corpuscular HGB Conc 35 gm/dL (32-36); Mean Corpuscular Hemoglobin 30 pg (26-34); Mean Corpuscular Volume 88 fL (80-100); Monocytes Percent Auto 5.3 % (0.0-11.0); Neutrophils Percent Auto 78.9 % (42.0-72.0); Platelet Count* 287 K/uL (140-440); Potassium* 3.5 mmol/L (3.6-5.1); Red Blood Count 3.42 m/uL (4.00-5.20); White Blood Count* 8.67 K/uL (4.50-11.00)
[2021-12-04 07:47] LABS: Slide Review Reflex No
[2021-12-04 07:48] LABS: Creatinine* 0.6 mg/dL (0.5-1.5); Est. Creatinine Clearance* 101.53; Estimated Glomerular Filt Rate 118 ml/min
[2021-12-04 07:49] LABS: Blood Urea Nitrogen* 5 mg/dL (5-24); Calcium* 8.9 mg/dL (8.4-10.6); Carbon Dioxide* 25 mmol/L (20-32); Glucose* 266 mg/dL (60-115)
[2021-12-04] MEDS: 5 % DEXTROSE IN LAC RINGER'S 1,000 ML 75 ML IV ×2 (08:00→20:49)
[2021-12-04] MEDS: ONDANSETRON 2 MG/ML inj 4 MG IVP ×2 (09:41→21:56)
[2021-12-04] MEDS: SENNOSIDES 1 TAB TABLET 2 TAB PO (09:42)
[2021-12-04] MEDS: DULOXETINE 30 MG CAPSULE DR 120 MG PO (09:45)
[2021-12-04] MEDS: POTASSIUM CHLORIDE 10 MEQ CAPSULE ER 20 MEQ PO (11:19)
[2021-12-04 12:24] LABS: Lab Add On Test New Spec Needed
[2021-12-04 13:29] LABS: D Dimer Quantitative* 0.41 ug/ml (0.00-0.50)
[2021-12-04] MEDS: METOCLOPRAMIDE 10 MG TABLET PO ×2 (14:33→17:51)
--- NOTE | 2021-12-04 14:55 | PC.NURSE ---
Pt was not able to eat anything due to frequent n/v. Ondansetron and Metoclopramide given at different time as scheduled. At 1300, patient complained of difficulty breathing. V/S well stable, MD informed and reassured patient. Made no changes to patient's treatment. Blood glucose checked at 0800 and 1200 recorded as 280 and 135 respectively and insulin given as per sliding scale order. Patient reported of having 3 BM this shift.
--- NOTE | 2021-12-04 15:09 | PM.IMPN1 ---
Progress Note: A&P Assessment and plan (1) DKA, type 1: Problem details: Secondary to noncompliance with insulin and blood glucose checks. Complicated by episodes of vomiting from diabetic gastroparesis. Status: Acute (2) Uncontrolled type 1 diabetes mellitus: Problem details: Diabetes has been challenging to control due to inconsistent ability to eat and drink combined with inconsistencies in glucose monitoring and insulin administration Status: Acute (3) Noncompliance: Problem details: Concern for mental health factors contributing to noncompliance. Did have mental health evaluation at [facility] last week. Status: Acute (4) Gastroparesis: Problem details: Continue metoclopramide to see if she can tolerate p.o. food and fluid. Otherwise may need to revisit NG feedings Status: Acute Plan Continue in-hospital to manage diabetes awaiting her to resume oral intake. Probably will need NG tube again if not eating. Time Spent With Patient Total time spent: Total time spent today is 40 minutes, 30 minutes in coordination care and discussing with patient and other providers management of diabetic gastroparesis, diabetes and plan of care going forward Subjective Date Seen: 12/04/21 Interval history: 36-year-old female seen in followup of hospitalization with DKA and recurrent vomiting. Patient reports that she still feels poorly. Very poor appetite with minimal p.o. intake. This morning when I saw her she was feeling some shortness of breath but that resolved without specific intervention. Her vital signs remained normal through that time. She remains on IV fluids as she has had very poor p.o. intake. Exam Narrative: Exam Narrative: She is alert and in no distress. She is oriented to her circumstances. Respirations are clear to auscultation. Breathing is unlabored. No wheezing rales or rhonchi. Cardiovascular: S1, S2, regular rate and rhythm. No murmur gallop or rub. Abdomen: Bowel sounds active. Abdomen is soft without tenderness or mass. Extremities without edema. Const: Vital Signs, click to edit/add: Vital Signs - 24 hr 12/03/21 19:00 12/03/21 19:00 12/03/21 22:09 Temperature 98.1 F Pulse Rate 74 Pulse Rate [Left A pical] 86 Respiratory Rate 20 Blood Pressure [Le ft Arm] 106/69 Pulse Oximetry 95 99 Oxygen Delivery Me thod Room Air 12/03/21 22:38 12/03/21 23:00 12/03/21 23:00 Temperature 97.5 F L Pulse Rate Pulse Rate [Left A pical] 77 77 Respiratory Rate 20 20 Blood Pressure [Le ft Arm] 132/85 Pulse Oximetry 99 100 Oxygen Delivery Me thod Room Air 12/04/21 02:22 12/04/21 03:00 12/04/21 07:00 Temperature 97.5 F L Pulse Rate Pulse Rate [Left A pical] 83 Respiratory Rate 18 Blood Pressure [Le ft Arm] 131/86 Pulse Oximetry 100 100 100 Oxygen Delivery Me thod Room Air 12/04/21 10:31 12/04/21 07:00 12/04/21 08:00 Temperature 97.2 F L Pulse Rate 62 Pulse Rate [Left A pical] 63 63 Respiratory Rate 18 18 Blood Pressure [Le ft Arm] 138/88 Pulse Oximetry 99 Oxygen Delivery Me thod Room Air 12/04/21 12:00 12/04/21 11:00 Temperature 97.7 F Pulse Rate Pulse Rate [Left A pical] 64 Respiratory Rate 18 Blood Pressure [Le ft Arm] 125/81 Pulse Oximetry 99 99 Oxygen Delivery Me thod Room Air Documenting provider has reviewed patient's vital signs: yes Labs Labs: Laboratory Results - last 24 hr 12/04/21 12/04/21 12/04/21 07:24 07:24 12:04 WBC 8.67 RBC 3.42 L Hgb 10.4 L Hct 30.0 L MCV 88 MCH 30 MCHC 35 RDW Coeff of Kailey 13.0 Plt Count 287 Neut % (Auto) 78.9 H Lymph % (Auto) 15.5 L [place] % (Auto) 5.3 Eos % (Auto) 0.0 Baso % (Auto) 0.1 Neut # (Auto) 6.80 Lymph # (Auto) 1.30 [place] # (Auto) 0.50 Eos # (Auto) 0.00 Baso # (Auto) 0.01 Abs Immat Gran (auto) 0.02 D-Dimer Quant (PE/DVT) 0.41 Sodium 137 Potassium 3.5 L Chloride 104 Carbon Dioxide 25 BUN 5 Creatinine 0.6 Estimated Creat Clear 101.53 Estimated GFR 118 Glucose 266 H Calcium 8.9
--- NOTE | 2021-12-04 19:53 | PC.NURSE ---
Pt reports feeling a bit better this evening. Reglan scheduled before meals. Zofran to be given PRN. Pt up ambulating in hallways, washed up this evening and cleaned up room. Tele Sinus arrhythmia.
[2021-12-05] MEDS: ONDANSETRON 2 MG/ML inj 4 MG IVP (01:26)
[2021-12-05 03:00] VITALS: BP 119/79; PULSE 72; RESP 16; TEMP 36.4; O2SAT 100
[2021-12-05] MEDS: PROCHLORPERAZINE 5 MG/ML VIAL IV ×2 (04:21→22:12)
[2021-12-05 07:00] VITALS: BP 147/85; PULSE 62; PULSE 67; RESP 16; TEMP 36.2; O2SAT 100
--- NOTE | 2021-12-05 07:04 | PC.NURSE ---
Shift Note -: Pt pleasant and cooperative, VSS, afebrile, c/o n/v throughout the night, Compazine order obtained at Pt request, see eMAR for medication administration. Pt remarked to nurse that when she feels queazy she will stick her finger down her throat to induce vomiting to relieve that feeling. Pt ed provided on non-pharmacological strategies to cope with nausea.
[2021-12-05 07:30] LABS: Chloride* 102 mmol/L (96-114); Potassium* 3.4 mmol/L (3.6-5.1); Sodium* 137 mmol/L (135-149)
[2021-12-05 07:33] LABS: Blood Urea Nitrogen* 4 mg/dL (5-24); Carbon Dioxide* 28 mmol/L (20-32); Creatinine* 0.7 mg/dL (0.5-1.5); Est. Creatinine Clearance* 87.03; Estimated Glomerular Filt Rate 114 ml/min; Glucose* 237 mg/dL (60-115)
[2021-12-05 07:34] LABS: Calcium* 8.7 mg/dL (8.4-10.6)
[2021-12-05] MEDS: OMEPRAZOLE 20 MG CAPSULE DR 40 MG PO (07:44)
[2021-12-05] MEDS: METOCLOPRAMIDE 10 MG TABLET PO ×3 (07:44→17:23)
--- NOTE | 2021-12-05 08:20 | PM.IMPN1 ---
Progress Note: A&P Assessment and plan (1) Gastroparesis: Problem details: Continue metoclopramide to see if she can tolerate p.o. food and fluid. Otherwise may need to revisit NG feedings Status: Acute (2) DKA, type 1: Problem details: Secondary to noncompliance with insulin and blood glucose checks. Complicated by episodes of vomiting from diabetic gastroparesis. Status: Acute Plan [facility] was contacted by nursing staff with concern of vomiting [ ] [The patient was admitted for DKA on 12/02 which is now resolving. The patient is standing metoclopramide ordered orally for vomiting and as needed Zofran for breakthrough vomiting. Per nurse the patient has vomited twice tonight. The patient states that in the past Compazine has worked. Otherwise vitals are stable and diabetes is well controlled. EKG on 12 02 did not show any QTC prolongation. Electrolytes recently have been in the normal range.] -Prochlorperazine (Compazine) 5 to 10 mg IV every 6 hours as needed for nausea vomiting for 24 hours -Get EKG in the morning to monitor QTC -Discontinue Zofran [facility]. This service is available for further assistance as requested by your care team by calling [phone]. Subjective Date Seen: 12/05/21 Exam Const: Vital Signs, click to edit/add: Vital Signs - 24 hr 12/04/21 10:31 12/04/21 12:00 12/04/21 11:00 Temperature 97.7 F Pulse Rate Pulse Rate [Left A pical] 63 64 Respiratory Rate 18 18 Blood Pressure [Le ft Arm] 125/81 Pulse Oximetry 99 99 Oxygen Delivery Me thod Room Air 12/04/21 15:00 12/04/21 15:00 12/04/21 15:00 Temperature Pulse Rate 54 L Pulse Rate [Left A pical] 64 Respiratory Rate 18 Blood Pressure [Le ft Arm] Pulse Oximetry 100 Oxygen Delivery Me thod 12/04/21 16:00 12/04/21 19:00 12/04/21 19:00 Temperature 97.9 F 97.9 F Pulse Rate Pulse Rate [Left A pical] 62 67 Respiratory Rate 18 18 Blood Pressure [Le ft Arm] 131/95 H 129/89 Pulse Oximetry 100 100 100 Oxygen Delivery Me thod Room Air Room Air 12/04/21 23:25 12/04/21 23:20 12/04/21 23:20 Temperature Pulse Rate 81 Pulse Rate [Left A pical] 67 Respiratory Rate 16 Blood Pressure [Le ft Arm] Pulse Oximetry 100 Oxygen Delivery Me thod 12/04/21 23:30 12/05/21 03:00 12/05/21 03:00 Temperature 98.6 F 97.6 F Pulse Rate Pulse Rate [Left A pical] 58 L 72 Respiratory Rate 16 16 Blood Pressure [Le ft Arm] 137/74 119/79 Pulse Oximetry 100 100 100 Oxygen Delivery Me thod Room Air Room Air Labs Labs: Laboratory Results - last 24 hr 12/04/21 12/05/21 12:04 06:44 D-Dimer Quant (PE/DVT) 0.41 Sodium 137 Potassium 3.4 L Chloride 102 Carbon Dioxide 28 BUN 4 L Creatinine 0.7 Estimated Creat Clear 87.03 Estimated GFR 114 Glucose 237 H Calcium 8.7
[2021-12-05] MEDS: 5 % DEXTROSE IN LAC RINGER'S 1,000 ML 75 ML IV (09:14)
[2021-12-05] MEDS: DULOXETINE 30 MG CAPSULE DR 120 MG PO (09:14)
[2021-12-05] MEDS: POTASSIUM CHLORIDE 10 MEQ CAPSULE ER 20 MEQ PO (10:55)
[2021-12-05 11:00] VITALS: BP 141/88; PULSE 65; RESP 16; TEMP 36.6; O2SAT 100
[2021-12-05 11:06] VITALS: BMI 23.4
--- NOTE | 2021-12-05 12:07 | PM.IMPN1 ---
Progress Note: A&P Assessment and plan (1) Gastroparesis: Problem details: Continue metoclopramide to see if she can tolerate p.o. food and fluid. She reports feeling better today so will try oral hydration today. Initiate tube feedings if not getting adequate p.o. food and fluid Status: Acute (2) DKA, type 1: Problem details: Secondary to noncompliance with insulin and blood glucose checks. Complicated by episodes of vomiting from diabetic gastroparesis. Continue basal, bolus, corrective insulin. Status: Acute (3) Malnutrition: Problem details: Continue to try oral feedings today. If not making adequate oral intake will need feeding tube again Status: Acute (4) Depression: Problem details: Probably contributing to issues with self management of difficult medical problems, especially type 1 diabetes and gastroparesis Status: Acute Plan Continue in hospital for management of diabetes, malnutrition, gastroparesis Time Spent With Patient Total time spent: Total time spent today is 40 minutes, 30 minutes in course care and discussing with other providers and patient ongoing management of diabetic gastroparesis Subjective Date Seen: 12/05/21 Interval history: 36-year-old female seen in followup of DKA and diabetic gastroparesis and malnutrition. Patient reports she is feeling a little better today. She still taking minimal amounts of clear liquids. Nausea as the primary limitation. She is not having abdominal pain. Exam Narrative: Exam Narrative: Tired appearing but otherwise in no distress. She is oriented to her circumstances and pleasant. Respirations are clear to auscultation. Cardiovascular: S1, S2, regular rate and rhythm. No murmur gallop or rub. Abdomen: Bowel sounds active. Abdomen is soft without tenderness or mass. Extremities without edema. She moves all 4 extremities well. Const: Vital Signs, click to edit/add: Vital Signs - 24 hr 12/04/21 15:00 12/04/21 15:00 12/04/21 15:00 Temperature Pulse Rate 54 L Pulse Rate [Left A pical] 64 Respiratory Rate 18 Blood Pressure [Le ft Arm] Pulse Oximetry 100 Oxygen Delivery Me thod 12/04/21 16:00 12/04/21 19:00 12/04/21 19:00 Temperature 97.9 F 97.9 F Pulse Rate Pulse Rate [Left A pical] 62 67 Respiratory Rate 18 18 Blood Pressure [Le ft Arm] 131/95 H 129/89 Pulse Oximetry 100 100 100 Oxygen Delivery Me thod Room Air Room Air 12/04/21 23:25 12/04/21 23:20 12/04/21 23:20 Temperature Pulse Rate 81 Pulse Rate [Left A pical] 67 Respiratory Rate 16 Blood Pressure [Le ft Arm] Pulse Oximetry 100 Oxygen Delivery Me thod 12/04/21 23:30 12/05/21 03:00 12/05/21 03:00 Temperature 98.6 F 97.6 F Pulse Rate Pulse Rate [Left A pical] 58 L 72 Respiratory Rate 16 16 Blood Pressure [Le ft Arm] 137/74 119/79 Pulse Oximetry 100 100 100 Oxygen Delivery Me thod Room Air Room Air 12/05/21 07:00 12/05/21 07:00 12/05/21 07:00 Temperature Pulse Rate 67 Pulse Rate [Left A pical] 62 Respiratory Rate 16 Blood Pressure [Le ft Arm] Pulse Oximetry 100 Oxygen Delivery Me thod 12/05/21 07:00 Temperature 97.2 F L Pulse Rate Pulse Rate [Left A pical] 62 Respiratory Rate 16 Blood Pressure [Le ft Arm] 147/85 H Pulse Oximetry 100 Oxygen Delivery Me thod Room Air Documenting provider has reviewed patient's vital signs: yes Labs Labs: Laboratory Results - last 24 hr 12/04/21 12/05/21 12:04 06:44 D-Dimer Quant (PE/DVT) 0.41 Sodium 137 Potassium 3.4 L Chloride 102 Carbon Dioxide 28 BUN 4 L Creatinine 0.7 Estimated Creat Clear 87.03 Estimated GFR 114 Glucose 237 H Calcium 8.7
[2021-12-05 15:00] VITALS: BP 137/84; PULSE 79; PULSE 83; RESP 16; TEMP 36.9; O2SAT 99
--- NOTE | 2021-12-05 16:05 | PC.NURSE ---
unable to advance diet. pt refusing to eat. D5LR stopped today. BG 100 at lunch time. pt agreed to hold scheduled insulin. feeding tube to be placed.
[2021-12-05 19:00] VITALS: BP 114/69; PULSE 72; RESP 16; TEMP 36.7; O2SAT 100
[2021-12-05] MEDS: SODIUM CHLORIDE 0.9 % (FLUSH) 10 ML SYRINGE 5 ML IVF (22:13)
--- NOTE | 2021-12-05 22:30 | PC.NURSE ---
End of Shift: Patient pleasant and cooperative. Afebrile. Denies pain. Up independently in room and walking in hallway x1. BG 76 at dinner time, declined tray but did drink apple juice and a clear Ensure. BG up to 153 after drinking liquids. Patient denied nausea most of shift but did have nausea and a 200 mL emesis around 2215, PRN Compazine given x1.
[2021-12-06] VITALS (8 sets, daily range): BP systolic 130–145; BP diastolic 81–96; PULSE 60–77; RESP 16–18; TEMP 36.6–37.1; O2SAT 96–100; BMI 22.8
[2021-12-06] MEDS: OMEPRAZOLE 20 MG CAPSULE DR 40 MG PO (06:47)
[2021-12-06] MEDS: METOCLOPRAMIDE 10 MG TABLET PO ×2 (06:47→17:33)
[2021-12-06 07:36] LABS: Chloride* 102 mmol/L (96-114)
[2021-12-06 07:37] LABS: Potassium* 3.5 mmol/L (3.6-5.1); Sodium* 137 mmol/L (135-149)
[2021-12-06 07:39] LABS: Creatinine* 0.7 mg/dL (0.5-1.5); Est. Creatinine Clearance* 87.03; Estimated Glomerular Filt Rate 114 ml/min
[2021-12-06 07:40] LABS: Blood Urea Nitrogen* 6 mg/dL (5-24); Calcium* 8.6 mg/dL (8.4-10.6); Carbon Dioxide* 27 mmol/L (20-32); Glucose* 244 mg/dL (60-115); Magnesium* 1.6 mg/dL (1.5-2.6)
--- NOTE | 2021-12-06 07:41 | PC.NURSE ---
Pt alert and oriented. Pleasant and cooperative. Minimal nausea at start of shift and none towards morning. In fact states she is hungry this morning and cant wait for breakfast. Morning meds given. VSS.
[2021-12-06] MEDS: SODIUM CHLORIDE 0.9 % (FLUSH) 10 ML SYRINGE 5 ML IVF ×2 (08:45→21:26)
[2021-12-06] MEDS: PROCHLORPERAZINE 5 MG/ML VIAL IV ×2 (08:45→16:08)
[2021-12-06] MEDS: DULOXETINE 30 MG CAPSULE DR 120 MG PO (10:03)
[2021-12-06] MEDS: SENNOSIDES 1 TAB TABLET 2 TAB PO (10:04)
--- NOTE | 2021-12-06 11:27 | CRLHL7_ITS ---
For Patients: As a result of the Cures Act, medical imaging exams and procedure reports are released immediately into your electronic medical record. You may view this report before your referring provider. If you have questions, please contact your health care provider. Indication: Feeding tube placement Comparison: Single view chest December 02, 2021 Technique: Single AP view chest Findings: There is interval placement of nasogastric tube in satisfactory position within the gastric antrum. There is no focal consolidation, effusion, or pneumothorax. The cardiomediastinal silhouette is within normal limits. The bony thorax is grossly intact. Impression: Satisfactory position of nasogastric tube. No acute cardiopulmonary abnormality. Dictated by Catracho Burt MD @ 12/06/2021 1:36:28 PM (Electronically Signed)
[2021-12-06] MEDS: lidocaine HCL 2 % JELLY (TOP) STERILE 6 ML TOPICAL (12:40)
[2021-12-06 13:12] LABS: Phosphorus* 3.4 mg/dL (2.5-4.5)
--- NOTE | 2021-12-06 13:30 | P.IMPN_ITS ---
Progress Note: A&P Assessment and plan (1) Gastroparesis: Problem details: No improvement in appetite or ability to take in p.o. food and fluid Initiate tube feedings. Status: Acute (2) DKA, type 1: Problem details: Secondary to noncompliance with insulin and blood glucose checks. Complicated by episodes of vomiting from diabetic gastroparesis. Will now need to transition over to insulin with continuous tube feedings, basal rate with corrective insulin every 6 hours Status: Acute (3) Malnutrition: Problem details: Initiate tube feedings per nutrition recommendation. Isosource 1.5 45 mils per hour for 24 hours per day. Flush with 200 mL water every 4 hours. Status: Acute (4) Depression: Problem details: Probably contributing to issues with self management of difficult medical problems, especially type 1 diabetes and gastroparesis Status: Acute Plan Continue in hospital for management of tube feedings and diabetes. Time Spent With Patient Total time spent: Total time spent today is 45 minutes, 35 minutes in coordination of care and discussing management of tube feedings and diabetes Subjective Date Seen: 12/06/21 Interval history: 36-year-old female seen in followup of DKA, gastroparesis and malnutrition. Patient briefly felt like she had an appetite during the night but this morning has no appetite and is unable to tolerate significant food and fluid. She has elected to proceed with NG tube placement for feeding. Blood sugars were high overnight but low this morning. She has no abdominal pain or shortness of breath or fever. Exam Narrative: Exam Narrative: She is alert and appears in no distress. Tired appearing. Respirations are clear to auscultation. Cardiovascular: S1, S2, regular rate and rhythm. Inspection of her nares shows that she has relatively narrow nasal passages but appears to be room for a weighted NG tube in the lower left nostril. Initial attempts to pass an NG were difficult but with lidocaine topical anesthesia she tolerated it well and was successful in getting it through the left nostril. Const: Vital Signs, click to edit/add: Vital Signs - 24 hr 12/05/21 15:00 12/05/21 15:00 12/05/21 15:00 Temperature 98.4 F Pulse Rate Pulse Rate [Left A pical] 83 83 Respiratory Rate 16 16 Blood Pressure [Le ft Arm] 137/84 Pulse Oximetry 99 99 Oxygen Delivery [facility] Room Air 12/05/21 15:00 12/05/21 19:00 12/05/21 19:00 Temperature 98.1 F Pulse Rate 79 Pulse Rate [Left A pical] 72 Respiratory Rate 16 Blood Pressure [Le ft Arm] 114/69 Pulse Oximetry 100 100 Oxygen Delivery [facility] Room Air 12/06/21 01:14 12/06/21 01:14 12/06/21 01:14 Temperature Pulse Rate 60 Pulse Rate [Left A pical] 60 Respiratory Rate Blood Pressure [Le ft Arm] Pulse Oximetry 99 [facility] 01:14 12/06/21 05:00 12/06/21 05:00 Temperature 98.2 F 98.2 F Pulse Rate Pulse Rate [Left A pical] 74 71 Respiratory Rate 16 18 Blood Pressure [Le ft Arm] 138/95 H Pulse Oximetry 99 99 99 Oxygen Delivery [facility] Room Air Room Air 12/06/21 08:51 12/06/21 07:00 12/06/21 08:55 Temperature 97.9 F Pulse Rate Pulse Rate [Left A pical] 74 74 Respiratory Rate 18 18 Blood Pressure [Le ft Arm] 135/81 Pulse Oximetry 97 97 Oxygen Delivery [facility] Room Air 12/06/21 08:55 Temperature Pulse Rate 60 Pulse Rate [Left A pical] Respiratory Rate Blood Pressure [Le ft Arm] Pulse Oximetry Oxygen Delivery [facility] Documenting provider has reviewed patient's vital signs: yes Labs Labs: Laboratory Results - last 24 hr 12/06/21 06:47 Sodium 137 Potassium 3.5 L Chloride 102 Carbon Dioxide 27 BUN 6 Creatinine 0.7 Estimated Creat Clear 87.03 Estimated GFR 114 Glucose 244 H Calcium 8.6 Phosphorus 3.4 Magnesium 1.6
--- NOTE | 2021-12-06 14:19 | PC.NURSE ---
End of Shift Note: Patient this am only took in chicken broth and juice. Toward lunch time tried to enc her to try full liquids any that she thought sounded good and she declined. A little while later she was requesting to see me. When I went into to see her she was requesting to have a feeding tube placed as she doesn't feel she can eat and she is feeling weak from not eating. Dr. Huitron ordered to her to have a weighted feeding tube placed. I was not able to place this. Notify Dr. Huitron. We then put a little lidocain gel in her nose to numb it to hopefully help for her to tolerate the feeding tube placement. After having the gel placed and nose numb Dr. Huitron was able to place the tube. Did try to check placement with my stethoscope but did not hear anything. After x-ray confirmed placement and received the go ahead to start the feeding from Dr. Huitron isosource 1.5 feeding started.
--- NOTE | 2021-12-06 19:38 | PC.NURSE ---
Pt tolerating tube feeding full strength IsoSource w/o any increased pain. Prn compazine IV provided at pt's request and she was able to sleep. BG check 75 prior to dinner and pt received grape juice with one packet of sugar. She had no sx of hypoglycemia. Up ad cadence in room and walked to to have a large loose BM. Pt up to recliner just prior to shift change. Report given to Tushar Epps RN at 7pm.
[2021-12-07] VITALS (9 sets, daily range): BP systolic 107–135; BP diastolic 78–97; PULSE 70–94; RESP 16; TEMP 36.2–36.8; O2SAT 98–100
[2021-12-07] MEDS: FAMOTIDINE 20 MG TABLET PO (02:31)
[2021-12-07] MEDS: PROCHLORPERAZINE 5 MG/ML VIAL IV (05:11)
--- NOTE | 2021-12-07 06:55 | PC.NURSE ---
Patient was alert and oriented x4. HR was noted to increase to 160 with activity on tele. MD aware, watching for now. HR does return to 80's at rest. Patient denies SOB, lightheaded, dizziness when HR increased. She received insulin coverage for BG 244. Patient did not tolerate NG feeding at 45 ml/hr. Patient having nausea and vomiting. Discussed with MD, stopped feeding and attempted to give compazine, unable as IV infiltrated. Pepcid given PO. TF restarted at 30 ml/hr, decreased water flush to 100 ml. Compazine given when IV access established. Patient reports having several loose stools. She was pleasant and cooperative with cares.
[2021-12-07] MEDS: OMEPRAZOLE 20 MG CAPSULE DR 40 MG PO (07:23)
[2021-12-07 07:38] LABS: Chloride* 102 mmol/L (96-114)
[2021-12-07 07:39] LABS: Sodium* 139 mmol/L (135-149)
[2021-12-07 07:41] LABS: Creatinine* 0.6 mg/dL (0.5-1.5); Est. Creatinine Clearance* 101.53; Estimated Glomerular Filt Rate 118 ml/min
[2021-12-07 07:42] LABS: Blood Urea Nitrogen* 6 mg/dL (5-24); Calcium* 8.8 mg/dL (8.4-10.6); Carbon Dioxide* 29 mmol/L (20-32); Glucose* 89 mg/dL (60-115)
[2021-12-07] MEDS: DULOXETINE 30 MG CAPSULE DR 120 MG PO (08:30)
[2021-12-07] MEDS: METOCLOPRAMIDE 10 MG TABLET PO ×2 (08:30→12:37)
[2021-12-07] MEDS: SODIUM CHLORIDE 0.9 % (FLUSH) 10 ML SYRINGE 5 ML IVF ×2 (08:31→21:12)
--- NOTE | 2021-12-07 09:49 | PC.SOCIAL ---
Discharge plans: Met with pt regarding MD order for home NG tube feedings. Pt states she has had these services through [employer] last year and still has a pump and backpack from this company. Patient requested new orders be sent to [employer]. Called [employer] [phone] and confirmed they were providing services last year. Company requested new information and MD orders be faxed to them at [phone] for follow up. Social work to follow up as needed.
[2021-12-07] MEDS: PROCHLORPERAZINE 10 MG TABLET 5 MG PO (13:50)
--- NOTE | 2021-12-07 14:24 | PC.SOCIAL ---
Addendum entered by ROCIO Buenrostro 12/07/21 14:52: Received additional call from [facility] stating that phone number to call when discharge date and needs are determined is [phone]. This number will be answered on the weekend as well. Orders can be faxed to [phone]. If pt is on continuous feeding, agency needs discharge orders by 10:0am on day of discharge to coordinate bringing supplies to the hospital for discharge home. brush worker to follow up as needed. Original Note: Discharge planning: REceived call back from [facility], confirming pt has insurance coverage for home infusion services. When discharge date and final feeding orders are determined, these should be faxed to [facility] who will arrange for supplies to be delivered and they will also arrange for home care services as needed. new car make ready worker to follow up as needed.
--- NOTE | 2021-12-07 14:26 | PC.SOCIAL ---
Social work: Received call from pt's insurance examining clerk, Sharon [phone], who is available to assist as needed with discharge. She has been informed of plans to use [facility] at discharge.
--- NOTE | 2021-12-07 17:05 | PM.IMPN1 ---
Progress Note: A&P Assessment and plan (1) Gastroparesis: Problem details: Tolerating tube feedings. Will probably need to be evaluated for a feeding tube placed in her stomach as she did not tolerate the NG tube for a long period last year due to sinus infections. Outpatient evaluation for this once we have established that the tube feedings will work. Status: Acute (2) DKA, type 1: Problem details: Blood sugar control improved with tube feedings and predictable nutritional intake. Should be able to make predictable dosing of insulin. Status: Acute (3) Malnutrition: Problem details: Initiate tube feedings per nutrition recommendation. Isosource 1.5, 45 mils per hour for 24 hours per day. Flush with 200 mL water every 4 hours. Status: Acute (4) Depression: Problem details: Probably contributing to issues with self management of difficult medical problems, especially type 1 diabetes and gastroparesis Status: Acute Plan Continue in hospital for adjustment of feedings and insulin. Possible discharge to home tomorrow. Time Spent With Patient Total time spent: Total time spent today is 40 minutes in coordination of care and discussion with patient ongoing evaluation management. Subjective Date Seen: 12/07/21 Interval history: 36-year-old female seen in followup DKA and diabetic gastroparesis. She is tolerating the tube feedings fairly well. She did have an episode last night where she had nausea after she received a flush of water. That happened again this morning. Tube feedings themselves are not bothering her. Blood sugars have been fairly well controlled on this current regimen. She reports otherwise feeling well. Exam Narrative: Exam Narrative: She is alert and appears in no distress. Mood and affect are brighter. Respirations are clear to auscultation. Cardiovascular: S1, S2, regular rate and rhythm. No murmur gallop or rub. Abdomen is soft without tenderness. No extremity edema. Const: Vital Signs, click to edit/add: Vital Signs - 24 hr 12/06/21 20:13 12/07/21 00:00 12/07/21 00:00 Temperature 98.1 F 97.2 F L Pulse Rate 72 Pulse Rate [Left A pical] 77 74 Respiratory Rate 18 16 Blood Pressure [Le ft Arm] 130/96 H 121/85 Pulse Oximetry 96 99 Oxygen Delivery [facility] Room Air Room Air 12/07/21 04:00 12/07/21 08:16 12/07/21 07:48 Temperature 98 F 97.8 F Pulse Rate 77 Pulse Rate [Left A pical] 70 88 Respiratory Rate 16 16 Blood Pressure [Le ft Arm] 135/97 H 107/78 Pulse Oximetry 98 99 Oxygen Delivery [facility] Room Air Room Air 12/07/21 12:33 12/07/21 15:27 12/07/21 15:36 Temperature 98.0 F 98.2 F Pulse Rate 94 Pulse Rate [Left A pical] 79 91 Respiratory Rate 16 16 Blood Pressure [Le ft Arm] 117/82 112/81 Pulse Oximetry 100 99 Oxygen Delivery [facility] Room Air Room Air Documenting provider has reviewed patient's vital signs: yes Labs Labs: Laboratory Results - last 24 hr 12/07/21 06:56 Sodium 139 Potassium 3.0 L Chloride 102 Carbon Dioxide 29 BUN 6 Creatinine 0.6 Estimated Creat Clear 101.53 Estimated GFR 118 Glucose 89 Calcium 8.8
[2021-12-07] MEDS: METOCLOPRAMIDE 10 MG TABLET 5 MG PO (18:31)
--- NOTE | 2021-12-07 18:32 | PC.NURSE ---
Addendum entered by Katherine Jaime RN 12/07/21 18:35: Blood sugars 119, 174 and 178. Original Note: Pt. able to tolerate Isosource 1.5 david tube feeding at 45ml/hr with scheduled Reglan po and PRN Compazine po x 1.
[2021-12-08] VITALS: BP 108/72; PULSE 69; PULSE 79; RESP 16; TEMP 37; O2SAT 98
[2021-12-08 04:00] VITALS: BP 109/71; PULSE 84; RESP 16; TEMP 36.9; O2SAT 100
[2021-12-08] MEDS: OMEPRAZOLE 20 MG CAPSULE DR 40 MG PO (06:36)
--- NOTE | 2021-12-08 06:48 | PC.NURSE ---
Alert and oriented x4. Vitals stable. Blood sugars stable; no insulin at midnight. Denies pain. Continuous feeding on going. Feeding tube changed tonight with feedings. NG tube intact and tolerating feedings fine. No concerns noted
[2021-12-08 07:20] LABS: Chloride* 101 mmol/L (96-114); Sodium* 137 mmol/L (135-149)
[2021-12-08 07:21] LABS: Potassium* 3.7 mmol/L (3.6-5.1)
[2021-12-08 07:23] LABS: Creatinine* 0.6 mg/dL (0.5-1.5); Est. Creatinine Clearance* 101.53; Estimated Glomerular Filt Rate 118 ml/min
[2021-12-08 07:24] LABS: Blood Urea Nitrogen* 7 mg/dL (5-24); Calcium* 8.8 mg/dL (8.4-10.6); Carbon Dioxide* 27 mmol/L (20-32); Glucose* 113 mg/dL (60-115)
[2021-12-08 08:00] VITALS: BP 97/66; PULSE 107; PULSE 83; RESP 18; TEMP 36.6; O2SAT 99
[2021-12-08] MEDS: POTASSIUM BICARB 25 MEQ EFFERVESCENT TAB G-TUBE (08:00)
[2021-12-08] MEDS: METOCLOPRAMIDE 10 MG TABLET 5 MG PO ×2 (08:00→12:53)
--- NOTE | 2021-12-08 08:00 | CRLHL7_ITS ---
For Patients: As a result of the Century Cures Act, medical imaging exams and procedure reports are released immediately into your electronic medical record. You may view this report before your referring provider. If you have questions, please contact your health care provider. Indication: Feeding tube placement Technique: Supine view abdomen was obtained. Comparison: None available. Findings: There is a non-obstructive, non-specific bowel gas pattern. There is a minimal amount of stool seen within the distal colon. Satisfactory position of weighted feeding tube with the tip likely in the 3rd portion of the duodenum. There is no intraabdominal free air. The visualized osseus structures are grossly intact. Impression: Non-obstructive bowel gas pattern. Satisfactory position of weighted tip feeding tube likely in the 3rd portion of the duodenum. Dictated by Catracho Burt MD @ 12/08/2021 8:25:14 AM (Electronically Signed)
[2021-12-08] MEDS: DULOXETINE 30 MG CAPSULE DR 120 MG PO (10:09)
[2021-12-08] MEDS: SENNOSIDES 1 TAB TABLET 2 TAB PO (10:09)
[2021-12-08 12:00] VITALS: BP 102/95; PULSE 78; RESP 16; TEMP 36.6; O2SAT 100
--- NOTE | 2021-12-08 12:19 | PC.SOCIAL ---
Addendum entered by LUDIN Alexandre 12/08/21 13:03: [facility] will send a nurse out at 6pm to pt.'s home. Pt. states she has no means to get home. Her daughter does not drive and her son is in middle school. A taxi will be arranged for a 5:30pm metal pickling equipment operator so pt. can make it home by 6 to meet with the home care nurse. Original Note: Pt. will discharge home with feeding tube from [facility], which pt. has used in the past. Updated orders were faxed to [phone], phone [phone]. [facility] will deliver the feedings and supplies today to the hospital between 4-5pm. They will send a nurse to work with pt. Updated pt.'s home care and home health aides teacher at [phone] on pt.'s discharge.
--- NOTE | 2021-12-08 14:09 | P.DS_ITS ---
DS: Providers Provider Date Seen: 12/08/21 Date of admission: 12/02/21 14:25 Primary care physician: Karuna Olvera MD Admitting Clinician: Jame Huitron MD Attending Physician on discharge: Funmilayo Benitez MD Date of Discharge: 12/08/21 DS: Diagnosis Discharge Diagnosis (1) DKA, type 1: Status: Acute Problem details: Blood sugar control improved with tube feedings and predictable nutritional intake. Should be able to make predictable dosing of insulin and easier management of type 1 diabetes with tube feedings. (2) Uncontrolled type 1 diabetes mellitus: Status: Acute Problem details: Diabetes has been challenging to control due to inconsistent ability to eat and drink combined with inconsistencies in glucose monitoring and insulin administration. Improved with tube feedings (3) Gastroparesis: Status: Acute Problem details: Tolerating tube feedings. Will probably need to be evaluated for a feeding tube placed in her stomach as she did not tolerate the NG tube for a long period last year due to sinus infections. Outpatient evaluation for this once we have established that the tube feedings will work. Consider outpatient follow-up with her commercial director at [facility] or with surgery at [place] for consultation about management of diabetic gastroparesis. Right now, her best option appears to be placement of a jejunostomy feeding tube through her abdominal wall and stomach. (4) Malnutrition: Status: Acute Problem details: Initiate tube feedings per nutrition recommendation. Isosource 1.5, 45 mils per hour for 24 hours per day. Flush with 200 mL water every 4 hours. (5) Metabolic encephalopathy: Status: Acute Problem details: Due to DKA DS: Summary Hospital Course Hospital Course: 36-year-old female with type 1 diabetes presented with recurrent diabetic ketoacidosis. She had altered mental status with profound dehydration. Series events began with severe anorexia, nausea and vomiting. This was thought due to her diabetic gastroparesis. She stopped taking her insulin and stop monitoring her blood sugars. On admission she was in obvious diabetic ketoacidosis. She was admitted to the hospital for IV fluids, IV insulin and management of her electrolytes. Overnight she improved remarkably. Over the next few days however she was unable to eat significant food and fluid. This was thought to be ongoing problems with diabetic gastroparesis. It was felt that it would not be possible to manage her diabetes or her nutrition if she was unable to eat. Because of this tube feedings were initiated. She was put on Isosource 1.5 and titrated up to 45 mL/hour. She tolerated this well. This will be running continuously 24 hours a day with 200 mL flushes of fluid every 4 hours. On this regimen she has been treated with long-acting insulin 14 units every 12 hours. With this plan she appears to have fairly good blood sugar control so far. In the past she had tube feeding but it did not work well long-term because she developed sinus infections. Likely she will need an alternative feeding plan possibly a jejunostomy feeding tube placed through her abdominal wall and stomach for long-term use Status at Discharge Functional status at discharge: independent ambulation Overall status at discharge: patient is back to baseline Time Spent with Patient Time attestation: Total time spent providing and/or coordinating discharge services: Time spent: Greater than 30 minutes Exam Narrative: Exam Narrative: She is alert and appears in no distress. Mood and affect are bright. Breathing is unlabored. Abdomen is soft. Tube feedings are going well for her. Const: Vital Signs, click to edit/add: Vital Signs - 24 hr 12/07/21 15:27 12/07/21 15:36 12/07/21 19:59 Temperature 98.2 F 98.2 F Pulse Rate 94 Pulse Rate [Left A pical] 91 93 Respiratory Rate 16 16 Blood Pressure [Le ft Arm] 112/81 116/79 Pulse Oximetry 99 [facility] 12/07/21 23:00 12/08/21 00:00 12/08/21 00:00 Temperature 98.6 F Pulse Rate 69 Pulse Rate [Left A pical] 79 79 Respiratory Rate 16 16 Blood Pressure [Le ft Arm] 108/72 Pulse Oximetry [facility] 12/08/21 04:00 12/08/21 08:00 12/08/21 08:00 Temperature 98.5 F 97.9 F Pulse Rate 107 H Pulse Rate [Left A pical] 84 83 Respiratory Rate 16 18 Blood Pressure [Le ft Arm] 109/71 97/66 Pulse Oximetry 100 [address] [facility] Room Air 12/08/21 12:00 Temperature 97.9 F Pulse Rate Pulse Rate [Left A pical] 78 Respiratory Rate 16 Blood Pressure [Le ft Arm] 102/95 H Pulse Oximetry 100 Oxygen Delivery Me thod Room Air Documenting provider has reviewed patient's vital signs: yes DS: Data Data Completed and Pending Labs on day of discharge: Labs from last 24 hours 12/08/21 06:54 Sodium 137 Potassium 3.7 Chloride 101 Carbon Dioxide 27 BUN 7 Creatinine 0.6 Estimated Creat Clear 101.53 Estimated GFR 118 Glucose 113 Calcium 8.8 Discharge Plan Discharge Disposition: Home, Self-Care Date of Admission: 12/02/21 14:25 Attending Provider on Discharge: Jame Huitron Primary Care Provider: Karuna Olvera I Condition: Improved Anticipated Discharge Date/Time: 12/08/21 11:00 Discharge Medications: New metoclopramide HCl 10 mg Tablet 5 mg PO TID@0730,1130,1730 PRN (Reason: nausea and vomiting) Qty: 90 0RF prochlorperazine maleate 10 mg Tablet 5 mg PO Q6H PRNQty: 30 0RF Continued hydroxyzine HCl 25 mg tablet 25 mg PO TID PRN cyclobenzaprine 5 mg tablet 5 mg PO TID PRN Label Comments: TAKE ONE TABLET (5 MG) BY MOUTH 3 TIMES DAILY IF NEEDED FOR MUSCLE SPASM. duloxetine 60 mg capsule,delayed release(DR/EC) 120 mg PO DAILY Label Comments: TAKE 2 CAPSULES (120 MG) BY MOUTH ONCE DAILY. Changed insulin aspart U-100 100 unit/mL (3 mL) insulin pen 2 unit SUBCUT QID PRN (Reason: Diabetes) Qty: 15 0RF Label Comments: INJECT 3-4 UNITS DIRECTED WITH MEALS AND 1 WITH SNACKS PLUS SLIDING SCALE. MAX DOSE UP TO 30 UNITS DAILY. Rx Instructions: Take 2-4 units subcutaneously as needed for elevated blood sugars or if eating extra meals. insulin glargine [Lantus Solostar U-100 Insulin] 100 unit/mL (3 mL) insulin pen 14 unit SUBCUT BID Qty: 10 0RF Label Comments: ADMINISTER 12 UNITS UNDER THE SKIN TWICE DAILY Discharge Orders: Discharge Order (Routine); Ordered 12/08/21 Ordered By: Jame Huitron Activity Restrictions/Additional Instructions: See your doctor next week. Feeding through a tube in the nose is not a good long-term plan. You may need a tube put through your abdominal wall or other treatment. Diet Detail: Isosource 1.5 continuously put through NG feeding tube at 45 mL/hour. Flush tube every 4 hours with 200 mL of water Follow Up Appointments: Karuna Olvera MD [Primary Care Provider] - 12/13/21 12:45 pm Forms: [employer] Info Instructions
--- NOTE | 2021-12-08 15:48 | PC.NURSE ---
shift note: pt up indept in room. 200cc flush x2. pt tolerating nasal feeding. LS clr. pt denies pain. blood sugars 127,262. IV to lt FA intact & patent
[2021-12-08 16:00] VITALS: BP 105/68; PULSE 84; RESP 16; TEMP 36.4; O2SAT 100
[2021-12-08 17:07] VITALS: PULSE 107; RESP 16; TEMP 36.6
--- NOTE | 2021-12-08 18:48 | PC.NURSE ---
1745: Discharge instructions, medications, and educational material reviewed with patient. Questions answered. Belongings packed and sent with patient. Discrepenty on patient own medications addressed. Paper belonging form filled out by admitting nurse states 3 home meds in [place] bin. Unable to locate medications. Admitting nurse called at home to recall the information. Nurse states the patient was confused and out of it at admission and stated her sister was going to bring in some home medications but never did. Admitting nurse verifies she never saw home medications. Patient then recalled being confused at admission and agreeded medications likely are at home. Patient was going to follow up with sign writer letterer or painter if she is unable to locate the medications at home. Paper belonging paper signed. Patient escorted out by and Jacquie RN with feeding tube supplies to the ED door where a taxi was waiting to take her home. Denies pain. IV d/c'd by , intact.
== END 2021-12-08 17:30 | disposition home or self-care (01) | DRG 637 ==
LOC: ED 13:00 → MEDSURG 13:45
PROVIDERS: Admitting Provider Family Medicine; Emergency Provider Emergency Medicine; PCP Family Medicine; Visit Provider Family Medicine
DX: E10.10 Type 1 diabetes mellitus with ketoacidosis without coma (principal); E43 Unspecified severe protein-calorie malnutrition; G93.41 Metabolic encephalopathy; E10.43 Type 1 diabetes mellitus with diabetic autonomic (poly)neuropathy; E10.65 Type 1 diabetes mellitus with hyperglycemia; K31.84 Gastroparesis; Z79.4 Long term (current) use of insulin; E86.0 Dehydration; E86.1 Hypovolemia; R00.0 Tachycardia, unspecified; H52.13 Myopia, bilateral; H52.203 Unspecified astigmatism, bilateral; G89.29 Other chronic pain; M54.42 Lumbago with sciatica, left side; M54.41 Lumbago with sciatica, right side; F32.A Depression, unspecified; Z68.22 Body mass index [BMI] 22.0-22.9, adult; Z91.198 Patient's noncompliance with other medical treatment and regimen for other reason
CPT/HCPCS: 36415; 71045; 74018; 80048; 80076; 81001; 82077; 82803; 82947; 82962; 83605; 83735; 84100; 84439; 84443; 84484; 85025; 85379; 86140; 87040; 87086; 87502; 87634; 87635; 93005; 94761; 99284; 99285; 99291; A9270; J0780; J2405; J2765; J3480; J3590; J7030; J7120

== ENCOUNTER 2022-01-03 10:55 | Emergency (ER) | payer MEDICARE, BC, SELFPAY ==
[2022-01-03 11:34] VITALS: BP 108/76; PULSE 94; RESP 16; TEMP 36.5; O2SAT 100; BMI 23.4
--- NOTE | 2022-01-03 14:11 | CRLHL7_ITS ---
For Patients: As a result of the Cures Act, medical imaging exams and procedure reports are released immediately into your electronic medical record. You may view this report before your referring provider. If you have questions, please contact your health care provider. Indication: Feeding tube placement. Technique: Abdomen 1 views. Comparison: December 08, 2021. Findings/Impression: No enteric tube visualized on this single image. No acute abnormality evident. Dictated by Lukas Mcgee MD @ 01/03/2022 3:18:02 PM (Electronically Signed)
--- NOTE | 2022-01-03 14:12 | ED.GENADULT ---
HPI - General Adult General Chief complaint: Unspecified Complaint, Adult Stated complaint: Needs feeding tube pulled, possible infection Time Seen by Provider: 01/03/22 13:55 History of Present Illness HPI narrative: 36-year-old woman with history of uncontrolled diabetes and recurrent DKA and malnutrition secondary gastroparesis presents with wanting her feeding tube removed. She reports that being placed in November 05 but I believe this is actually placed with her last hospitalization. She has had a more remote feeding tube placed however. Yesterday she reports that having migrated out again and gesturing about 2/3 of a foot. She also feels like there are particles in it now when she opened the cap saying it smelled bad. She has not had increased abdominal pain. Two weeks ago apparently reports a similar degree of migration of the tube out which she pushed back in herself. She says that she seems to recall the feeding tube placed at 64. She reports follow-up with regard to placement of permanent feeding to likely a J-tube per review of records. Intermittently has struggled she says with getting a lump in her throat and unable to swallow with recurrent vomiting. She reports over the last week at least she has been she has been managing to maintain oral intake. She confirms that she has been nibbling on food and drinking 1-2 cans daily of her supplement. I asked her how much she is supposed to be taking, she reports 4. Has follow-up with her primary yet this week and with GI/surgery at the end of the month. Related Data Home Medications Medication Instructions Recorded Confirmed cyclobenzaprine 5 mg tablet 5 mg PO TID PRN 12/02/21 01/03/22 duloxetine 60 mg capsule,delayed 120 mg PO DAILY 12/02/21 01/03/22 release hydroxyzine HCl 25 mg tablet 25 mg PO TID PRN 12/02/21 01/03/22 Previous Rx's Medication Instructions Recorded insulin aspart U-100 100 unit/mL 2 unit (0.02 mL) subcut QID PRN 12/08/21 (3 mL) subcutaneous pen Diabetes #15 mL insulin glargine 100 unit/mL (3 14 unit (0.14 mL) subcut BID #10 mL 12/08/21 mL) subcutaneous pen (Lantus Solostar U-100 Insulin) metoclopramide HCl 10 mg tablet 5 mg PO TID@0730,1130,1730 PRN 12/08/21 nausea and vomiting #90 tabs prochlorperazine maleate 10 mg 5 mg PO Q6H PRN #30 tabs 12/08/21 tablet Allergies Allergy/AdvReac Type Severity Reaction Status Date / Time No Known Drug Allergies Allergy Verified 01/03/22 11:38 Review of Systems Status of ROS: Reports: 6 or more systems reviewed and unremarkable except as noted in History and below [facility] Medical History Chronic midline low back pain with bilateral sciatica COVID-19 vaccine administered Depressed mood Elevated serum free T4 level Gastroparesis Hypovolemia dehydration Myopia of both eyes with astigmatism Noncompliance Pap smear for cervical cancer screening Severe malnutrition due to type 1 diabetes mellitus Sinus tachycardia Uncontrolled type 1 diabetes mellitus Surgical History (Updated 12/02/21 @ 14:35 by Funmilayo Benitez MD) History of esophagogastroduodenoscopy (EGD) Social History (Updated 12/02/21 @ 15:21 by Funmilayo Benitez MD) Narrative: Has three children: 20y/o, 15y/o, 12y/o. Smoking Status: Never smoker How often do you have a drink containing alcohol: never AUDIT-C Alcohol total score: 0 Non-prescribed substance use: denies use service: No Exam Narrative: Exam Narrative: Pleasant calm NAD. Much more alert and interactive than I have ever seen Ms. Solis. Breathing easily. Looks to be well nourished at this time. NG tube in place at left near. Looks to be about 50 cm. The 65 in question is definitely no where near her nares. It is clamped at her nose and tape is applied. Abdomen is soft and nontender. Cardiovascular elevated rate regular rhythm. Const: Vital Signs, click to edit/add: Vital Signs - 24 hr 01/03/22 11:34 Temperature 97.7 F Pulse Rate [Pulse Oximeter] 94 Respiratory Rate 16 Blood Pressure [Ri ght Upper Arm] 108/76 Pulse Oximetry 100 Oxygen Delivery Me thod Room Air Documenting provider has reviewed patient's vital signs: yes Course Course Hospital Course: Chest x-ray is done to confirm location of feeding tube. By my read and comparison with prior imaging clearly is no longer in the stomach; tip appears to be in the lower/distal esophagus. Reevaluation(s) Reevaluation #1: I review x-rays with Ms. Solis. Discussed options for care. She is insistent that the feeding tube be removed. Reevaluation #2: Feeding tube removed. Consultations Consultation #1: Did receive a call from our hospitalist noting that feeding tube was dislodged recommending replacement. Unfortunately Ms. Solis is not on board with this. Vital Signs Vital signs: Initial Vital Signs Temperature 97.7 F 01/03/22 11:34 Temperature Source Temporal Artery Scan 01/03/22 11:34 Pulse Rate 94 01/03/22 11:34 Respiratory Rate 16 01/03/22 11:34 Blood Pressure 108/76 01/03/22 11:34 Blood Pressure Mean 86 01/03/22 11:34 Blood Pressure Position Sitting 01/03/22 11:34 Pulse Oximetry 100 01/03/22 11:34 Oxygen Delivery Method 01/03/22 11:34 Vital Signs Temperature 97.7 F 01/03/22 11:34 Pulse Rate 94 01/03/22 11:34 Respiratory Rate 16 01/03/22 11:34 Blood Pressure 108/76 01/03/22 11:34 Pulse Oximetry 100 01/03/22 11:34 Oxygen Delivery Method 01/03/22 11:34 Temperature 97.7 F 01/03/22 11:34 Pulse Rate 94 01/03/22 11:34 Respiratory Rate 16 01/03/22 11:34 Blood Pressure 108/76 01/03/22 11:34 Pulse Oximetry 100 01/03/22 11:34 Oxygen Delivery Method 01/03/22 11:34 Medical Decision Making MDM Narrative Medical decision making narrative: If she has truly not used this in a week presumably the supplement has gone bad within the feeding tube by now. We could certainly irrigate this/clear out. Discharge Plan Discharge Clinical Impression: Complication of feeding tube, Gastroparesis Patient Disposition: Home, Self-Care Condition: Stable Additional Instructions: Please follow-up as scheduled yet this week with your primary care provider and the end of the month as planned. Do try to get your supplement in with dosings as recommended or be sure that you are getting equivalent in other nutrition. Prescriptions: No Action hydroxyzine HCl 25 mg tablet 25 mg PO TID PRN cyclobenzaprine 5 mg tablet 5 mg PO TID PRN Label Comments: TAKE ONE TABLET (5 MG) BY MOUTH 3 TIMES DAILY IF NEEDED FOR MUSCLE SPASM. duloxetine 60 mg capsule,delayed release(DR/EC) 120 mg PO DAILY Label Comments: TAKE 2 CAPSULES (120 MG) BY MOUTH ONCE DAILY. metoclopramide HCl 10 mg Tablet 5 mg PO TID@0730,1130,1730 PRN (Reason: nausea and vomiting) Qty: 90 0RF prochlorperazine maleate 10 mg Tablet 5 mg PO Q6H PRNQty: 30 0RF insulin aspart U-100 100 unit/mL (3 mL) insulin pen 2 unit SUBCUT QID PRN (Reason: Diabetes) Qty: 15 0RF Label Comments: INJECT 3-4 UNITS DIRECTED WITH MEALS AND 1 WITH SNACKS PLUS SLIDING SCALE. MAX DOSE UP TO 30 UNITS DAILY. Rx Instructions: Take 2-4 units subcutaneously as needed for elevated blood sugars or if eating extra meals. insulin glargine [Lantus Solostar U-100 Insulin] 100 unit/mL (3 mL) insulin pen 14 unit SUBCUT BID Qty: 10 0RF Label Comments: ADMINISTER 12 UNITS UNDER THE SKIN TWICE DAILY Follow Up/Referrals: Karuna Olvera MD [Primary Care Provider] - Stand Alone Forms: [facility] Info Instructions
--- NOTE | 2022-01-03 14:33 | CRLHL7_ITS ---
For Patients: As a result of the Century Cures Act, medical imaging exams and procedure reports are released immediately into your electronic medical record. You may view this report before your referring provider. If you have questions, please contact your health care provider. Indication: Feeding tube placement. Technique: Chest 1 view. Comparison: None. Findings/Impression: Cardiovascular and mediastinum: Heart size and vasculature are normal in caliber and appearance. Feeding tube tip is in the distal esophagus. Lungs and pleural space: Lungs are clear. No sign of infiltrate or mass. No sign of pleural effusion. No pneumothorax. Bones and soft tissues: No acute findings. Dictated by Lukas Mcgee MD @ 01/03/2022 3:21:50 PM (Electronically Signed)
--- NOTE | 2022-01-03 16:23 | ED.NURSE ---
Naso gastric tube removed, all parts intact. Patient tolerated well.
== END 2022-01-03 16:27 | disposition home or self-care (01) ==
PROVIDERS: Emergency Provider Family Medicine; PCP Family Medicine
DX: K94.20 Gastrostomy complication, unspecified (principal); K31.84 Gastroparesis; E10.43 Type 1 diabetes mellitus with diabetic autonomic (poly)neuropathy; Z79.4 Long term (current) use of insulin; E10.65 Type 1 diabetes mellitus with hyperglycemia
CPT/HCPCS: 71045; 74018; 99283; 99284

== ENCOUNTER 2022-07-16 15:51 | Outpatient (CLI) | payer MEDICARE, BC, SELFPAY | END 2022-07-16 15:52 | disposition home or self-care (01) | LOC: AMB 07-17 16:11 | PROVIDERS: PCP Family Medicine; Visit Provider Family Medicine | DX: R41.82 Altered mental status, unspecified (principal); R11.10 Vomiting, unspecified | CPT/HCPCS: A0425; A0427 ==

== ENCOUNTER 2022-07-16 17:58 | Outpatient (CLI) | payer MEDICARE, BC, SELFPAY | END 2022-07-16 17:59 | disposition home or self-care (01) | LOC: AMB 07-17 16:19 | PROVIDERS: PCP Family Medicine; Visit Provider Family Medicine | DX: R41.82 Altered mental status, unspecified (principal) | CPT/HCPCS: A0425; A0426; A0427; A0428 ==

== ENCOUNTER 2022-09-24 18:05 | Outpatient (CLI) | payer MEDICARE, BC, SELFPAY | END 2022-09-24 18:06 | disposition home or self-care (01) | LOC: AMB 09-26 10:42 | PROVIDERS: PCP Family Medicine; Visit Provider Family Medicine | DX: E11.649 Type 2 diabetes mellitus with hypoglycemia without coma (principal) | CPT/HCPCS: A0425; A0427 ==

== ENCOUNTER 2022-09-24 18:30 | Emergency (ER) | payer MEDICARE, BC, SELFPAY ==
[2022-09-24] VITALS (19 sets, daily range): BP systolic 102–118; BP diastolic 79–86; PULSE 72–106; RESP 14; TEMP 36.6; O2SAT 99–100; BMI 21.9
--- NOTE | 2022-09-24 18:44 | CRLHL7_ITS ---
For Patients: As a result of the Century Cures Act, medical imaging exams and procedure reports are released immediately into your electronic medical record. You may view this report before your referring provider. If you have questions, please contact your health care provider. INDICATION: Trauma. TECHNIQUE: CT head without contrast. COMPARISON: None. FINDINGS: CSF spaces: Within normal limits for age. Brain parenchyma and extra-axial spaces: The franklin-white differentiation is normal. No sign of mass, hemorrhage, or midline shift. No extra-axial fluid collection. Skull base and calvarium: Right vertex scalp hematoma. The visualized paranasal sinuses and mastoid air cells demonstrate no acute or significant findings. The visualized orbits are grossly unremarkable. No skull fractures. IMPRESSION: Right upper tech scalp hematoma. No acute intracranial abnormality. Please note that all CT scans at this facility use dose modulation, iterative reconstruction, and/or weight-based dosing when appropriate to reduce radiation dose to as low as reasonably achievable. Dictated by Kale Samaniego MD @ 09/24/2022 8:08:07 PM (Electronically Signed)
--- NOTE | 2022-09-24 18:47 | ED_ITS ---
HPI - General Adult General Time Seen by Provider: 18:47 Date Seen: 09/24/22 Chief complaint: Seizure Stated complaint: Diabetic seizures Time Seen by Provider: 09/24/22 18:42 Source: patient Mode of arrival: EMS History of Present Illness HPI narrative: Bunny is 37-year-old female past medical history includes diabetes mellitus type 1 on insulin, depression, gastroparesis presents emerged department via EMS for seizure-like activity. Per EMS and patient, patient left her home around 5:07 p.m. to walk to [employer] to do some shopping before it got too hot, she did not eat anything prior to leaving to go to the shopping center, which she was walking there she felt dizzy, seeing colors, she thought her blood sugar was low so she tried to by a soda, when she was paying for it she got very lightheaded and passed out falling to the ground, when she woke up there were people standing around her, she states she felt like she can hear people could not respond, she was shaking, unsure on length of time, patient was not postictal, she did hit the back of her head and sustained a large contusion. She denies any headache, nausea vomiting, blood sugar readings stated low, per EMS it was 47, they gave her 150 mL of D10, this increased to 130, patient is feeling better at this time. She denies any neck pain or upper or lower back pain, no chest pain, trouble with breathing or abdominal pain. Patient states she had been doing well throughout the day. She has issues were her blood sugars get too elevated in the past causing her to go into DKA, she has never had low blood sugars in the past. Related Data Home Medications Medication Instructions Recorded Confirmed cyclobenzaprine 5 mg tablet 5 mg PO TID PRN 12/02/21 01/03/22 duloxetine 60 mg capsule,delayed 120 mg PO DAILY 12/02/21 01/03/22 release hydroxyzine HCl 25 mg tablet 25 mg PO TID PRN 12/02/21 01/03/22 Previous Rx's Medication Instructions Recorded insulin aspart U-100 100 unit/mL 2 unit (0.02 mL) subcut QID PRN 12/08/21 (3 mL) subcutaneous pen Diabetes #15 mL insulin glargine 100 unit/mL (3 14 unit (0.14 mL) subcut BID #10 mL 12/08/21 mL) subcutaneous pen (Lantus Solostar U-100 Insulin) metoclopramide HCl 10 mg tablet 5 mg (1/2 x 10 mg) PO 12/08/21 TID@0730,1130,1730 PRN nausea and vomiting #90 tabs prochlorperazine maleate 10 mg 5 mg (1/2 x 10 mg) PO Q6H PRN #30 12/08/21 tablet tabs Allergies Allergy/AdvReac Type Severity Reaction Status Date / Time No Known Drug Allergies Allergy Verified 01/03/22 11:38 Review of Systems Status of ROS: Reports: 10 or more systems reviewed and unremarkable except as noted in History and below [facility] Medical History Elevated serum free T4 level ?R79.89 - Other specified abnormal findings of blood chemistry (ICD-10) Sinus tachycardia ?R00.0 - Tachycardia, unspecified (ICD-10) Hypovolemia dehydration ?E86.1 - Hypovolemia (ICD-10) Noncompliance ?Z91.19 - Patient's noncompliance with other medical treatment and regimen (ICD-10) COVID-19 vaccine administered ?Z23 - Encounter for immunization (ICD-10) Pap smear for cervical cancer screening ?Z12.4 - Encounter for screening for malignant neoplasm of cervix (ICD-10) Depressed mood ?R45.89 - Other symptoms and signs involving emotional state (ICD-10) Chronic midline low back pain with bilateral sciatica ?M54.41 - Lumbago with sciatica, right side (ICD-10) ?M54.42 - Lumbago with sciatica, left side (ICD-10) ?G89.29 - Other chronic pain (ICD-10) Gastroparesis ?K31.84 - Gastroparesis (ICD-10) Severe malnutrition due to type 1 diabetes mellitus ?E10.69 - Type 1 diabetes mellitus with other specified complication (ICD-10) ?E43 - Unspecified severe protein-calorie malnutrition (ICD-10) Uncontrolled type 1 diabetes mellitus Myopia of both eyes with astigmatism ?H52.13 - Myopia, bilateral (ICD-10) ?H52.203 - Unspecified astigmatism, bilateral (ICD-10) Surgical History (Updated 12/02/21 @ 14:35 by Funmilayo Benitez MD) History of esophagogastroduodenoscopy (EGD) ?Z98.890 - Other specified postprocedural states (ICD-10) Social History (Updated 12/02/21 @ 15:21 by Funmilayo Benitez MD) Narrative: Has three children: 20y/o, 15y/o, 12y/o. Smoking Status: Never smoker Do you use any of these nicotine containing products: None Second hand tobacco smoke exposure: No How often do you have a drink containing alcohol: never AUDIT-C Alcohol total score: 0 Non-prescribed substance use: denies use service: No Exam Narrative: Exam Narrative: General: No obvious distress sitting comfortably, nontoxic in appearance HEENT: Pupils equal round reactive to light, extraocular muscles intact, large right parietal contusion, tender to palpation Neck: Nontender cervical spine Lungs: Clear to auscultation bilaterally Heart: Sinus tachycardia Abdomen: Soft nontender no distention, bowel sounds present Muscle skeletal: Moving upper lower extremities with no difficulty, +5 strength upper lower extremities Neuro; alert awake and oriented x3, GCS 15 Unable to evaluate gait Const: Vital Signs, click to edit/add: Vital Signs - 24 hr 09/24/22 18:39 09/24/22 18:40 09/24/22 18:40 Temperature 97.8 F Pulse Rate 102 H 105 H Pulse Rate [Pulse Oximeter] 100 Respiratory Rate 14 Blood Pressure 106/79 Blood Pressure [Le ft Upper Arm] 106/79 Pulse Oximetry 100 100 100 Oxygen Delivery Me thod Room Air Room Air 09/24/22 18:46 09/24/22 19:00 09/24/22 19:01 Temperature Pulse Rate 102 H 97 106 H Pulse Rate [Pulse Oximeter] Respiratory Rate Blood Pressure 102/84 Blood Pressure [Le ft Upper Arm] Pulse Oximetry 100 99 100 Oxygen Delivery Me thod 09/24/22 19:15 09/24/22 19:40 09/24/22 19:41 Temperature Pulse Rate 90 88 84 Pulse Rate [Pulse Oximeter] Respiratory Rate Blood Pressure 116/86 Blood Pressure [Le ft Upper Arm] Pulse Oximetry 100 100 100 Oxygen Delivery Me thod 09/24/22 19:45 09/24/22 20:00 09/24/22 20:01 Temperature Pulse Rate 83 78 84 Pulse Rate [Pulse Oximeter] Respiratory Rate Blood Pressure 118/80 Blood Pressure [Le ft Upper Arm] Pulse Oximetry 100 100 100 Oxygen Delivery Me thod 09/24/22 20:23 09/24/22 20:30 09/24/22 20:32 Temperature Pulse Rate 81 77 81 Pulse Rate [Pulse Oximeter] Respiratory Rate Blood Pressure 110/79 Blood Pressure [Le ft Upper Arm] Pulse Oximetry 100 100 100 Oxygen Delivery Me thod 09/24/22 20:45 09/24/22 21:00 09/24/22 21:04 Temperature Pulse Rate 84 82 74 Pulse Rate [Pulse Oximeter] Respiratory Rate Blood Pressure Blood Pressure [Le ft Upper Arm] Pulse Oximetry 100 99 100 Oxygen Delivery Me thod Course Course Hospital Course: 6:40 PM: AIDET performed, vitals show mild tachycardia, patient is feeling better prior to arrival to emergency department, will obtain ECG, CBC, lactate, VBG, beta hydroxybutyrate, CMP and CT head without IV contrast, 0.9 normal saline bolus, symptoms related to low blood sugar, patient usually takes 14 units Lantus in the morning and evening, she also uses short-acting NovoLog 4 times daily, and if she does not eat she is not supposed to take her Lantus, this morning she ended up taking her Lantus and did not eat resulting in the drop for her blood sugar. Other differentials include CVA, subarachnoid hemorrhage, hypertensive encephalopathy, hypoxia, hypoglycemia, hypercalcemia, hypo or hypernatremia, hypothyroidism, seizure disorder as well as other etiologies. Reevaluation(s) Time of Reevaluation #1: 20:11 Reevaluation #1: Imaging: CT head without IV contrast: IMPRESSION: Right upper tech scalp hematoma. No acute intracranial abnormality. CBC showed no leukocytosis, lactate elevated at 5.0 secondary to seizure activity due to hypoglycemic episode, plan to repeat after IV fluids, ECG showed sinus tachycardia, bpm 102, otherwise normal EKG, VBG showed no acidosis, metabolic panel showed no electrolyte abnormalities, blood glucose 65, this increased to 99 after oral intake. Will plan to repeat lactate. Patient is feeling better after above care given.. Blood sugar 116, lactate improved after IV hydration, patient is ambulating with no symptoms, tolerating orals, plan would be to discharge, she needs to follow up with her primary care provider over the next 5-7 days, instructions given. Reasons return given. Vital Signs Vital signs: Initial Vital Signs Pulse Rate 102 H 09/24/22 18:39 Blood Pressure 106/79 09/24/22 18:39 Blood Pressure Mean 88 09/24/22 18:39 Pulse Oximetry 100 09/24/22 18:39 Oxygen Delivery Method Room Air 09/24/22 18:39 Vital Signs Pulse Rate 102 H 09/24/22 18:39 Blood Pressure 106/79 09/24/22 18:39 Pulse Oximetry 100 09/24/22 18:39 Oxygen Delivery Method Room Air 09/24/22 18:39 Temperature 97.8 F 09/24/22 18:40 Pulse Rate 74 09/24/22 21:04 Respiratory Rate 14 09/24/22 18:40 Blood Pressure 110/79 09/24/22 20:32 Pulse Oximetry 100 09/24/22 21:04 Oxygen Delivery Method Room Air 09/24/22 18:40 Medical Decision Making Lab Data Labs: Lab Results 09/24/22 09/24/22 09/24/22 Range/Units 18:57 19:27 21:00 WBC 6.44 (4.50-11.00) K/uL RBC 4.31 (4.00-5.20) m/uL Hgb 12.3 (12.0-16.0) gm/dL Hct 36.9 (33.0-51.0) % MCV 86 (80-100) fL MCH 29 (26-34) pg MCHC 33 (32-36) gm/dL RDW Coeff of Kailey 13.2 (11.5-15.5) % Plt Count 317 (140-440) K/uL Neut % (Auto) 51.8 (42.0-72.0) % Lymph % (Auto) 41.0 (20-44) % Dauphin % (Auto) 5.9 (0.0-11.0) % Eos % (Auto) 0.8 (0.0-7.0) % Baso % (Auto) 0.2 (0.0-3.0) % Neut # (Auto) 3.34 (1.7-7.0) K/uL Lymph # (Auto) 2.64 (0.90-2.90) K/uL Dauphin # (Auto) 0.40 (0.00-0.90) K/UL Eos # (Auto) 0.05 (0.00-0.50) K/uL Baso # (Auto) 0.01 (0.00-0.30) K/uL Abs Immat Gran (auto) 0.02 (0.00-0.30) K/uL Imm/Tot Granulo (auto) 0.3 % VBG pH 7.353 (7.32-7.43) VBG pCO2 41 (40-50) mmHG VBG pO2 22.9 L (25-47) mmHG VBG HCO3 23 (21-28) mmol/L Sodium 139 (135-149) mmol/L Potassium 3.7 (3.6-5.1) mmol/L Chloride 105 (96-114) mmol/L Carbon Dioxide 23 (20-32) mmol/L BUN 10 (5-24) mg/dL Creatinine 0.9 (0.5-1.5) mg/dL Estimated Creat Clear 67.03 Estimated GFR 84 ml/min Glucose 65 (60-115) mg/dL Lactate 5.0 H* 3.0 H (0.5-1.9) mmol/L Calcium 9.3 (8.4-10.6) mg/dL Total Bilirubin 0.3 (0.1-1.5) mg/dL AST 34 (12-35) U/L ALT 29 (4-35) U/L Alkaline Phosphatase 85 (40-150) U/L Total Protein 7.9 (6.0-8.3) g/dL Albumin 4.6 (3.3-5.0) g/dL Urine Color Yellow (Yellow) Urine Appearance Clear (Clear) Urine pH 5.5 (5.0-8.5) Ur Specific Warren 1.010 (1.000-1.030) Urine Protein 1+ A (Negative) Urine Glucose (UA) Negative (Negative) Urine Ketones Negative (Negative) Urine Blood Negative (Negative) Urine Nitrite Negative (Negative) Urine Bilirubin Negative (Negative) Urine Urobilinogen 0.2 (0.2-1.0) Ur Leukocyte Esterase Negative (Negative) Urine RBC 0-2 (0-2) Urine WBC 0-2 (0-5) Ur Squamous Epith Cells Few (None-Few) Urine Bacteria None (None) Discharge Plan Discharge Clinical Impression: Hypoglycemia, Seizure, Head injury, Type 1 diabetes mellitus Patient Disposition: Home, Self-Care Condition: Improved Instructions: Head Injury (ED), Nonepileptic Seizures (ED) Additional Instructions: To follow-up with primary care provider over the next 3-5 days, for ED follow-up and recheck. Remember the importance of oral intake when taking her Lantus in the morning and throughout the day, return if worsening symptoms. Activity Level: No Restrictions Prescriptions: No Action hydroxyzine HCl 25 mg tablet 25 mg PO TID PRN cyclobenzaprine 5 mg tablet 5 mg PO TID PRN Patient Comments: TAKE ONE TABLET (5 MG) BY MOUTH 3 TIMES DAILY IF NEEDED FOR MUSCLE SPASM. duloxetine 60 mg capsule,delayed release(DR/EC) 120 mg PO DAILY Patient Comments: TAKE 2 CAPSULES (120 MG) BY MOUTH ONCE DAILY. metoclopramide HCl 10 mg Tablet 5 mg PO TID@0730,1130,1730 PRN (Reason: nausea and vomiting) Qty: 90 0RF prochlorperazine maleate 10 mg Tablet 5 mg PO Q6H PRNQty: 30 0RF insulin aspart U-100 100 unit/mL (3 mL) insulin pen 2 unit SUBCUT QID PRN (Reason: Diabetes) Qty: 15 0RF Patient Comments: INJECT 3-4 UNITS DIRECTED WITH MEALS AND 1 WITH SNACKS PLUS SLIDING SCALE. MAX DOSE UP TO 30 UNITS DAILY. Rx Instructions: Take 2-4 units subcutaneously as needed for elevated blood sugars or if eating extra meals. insulin glargine [Lantus Solostar U-100 Insulin] 100 unit/mL (3 mL) insulin pen 14 unit SUBCUT BID Qty: 10 0RF Patient Comments: ADMINISTER 12 UNITS UNDER THE SKIN TWICE DAILY Follow Up/Referrals: Karuna Olvera MD [Primary Care Provider] - Stand Alone Forms: [employer] Info Instructions
--- NOTE | 2022-09-24 19:00 | ED.NURSE ---
Pt drinking orange juices and eating sandwich and applesauce.
[2022-09-24 19:03] LABS: HCO3 VBG 23 mmol/L (21-28); PCO2 VBG 41 mmHG (40-50); PO2 VBG 22.9 mmHG (25-47); pH VBG 7.353 (7.32-7.43)
[2022-09-24] MEDS: 0.9 % SODIUM CHLORIDE 1000 ml 1,000 ML IV (19:04)
[2022-09-24 19:05] LABS: Basophils Absolute Auto 0.01 K/uL (0.00-0.30); Basophils Percent Auto 0.2 % (0.0-3.0); Eosinophils Absolute Auto 0.05 K/uL (0.00-0.50); Eosinophils Percent Auto 0.8 % (0.0-7.0); Hematocrit 36.9 % (33.0-51.0); Hemoglobin* 12.3 gm/dL (12.0-16.0); Immature Granulocytes Abs Auto 0.02 K/uL (0.00-0.30); Immature Granulocytes Pct Auto 0.3 %; Lymphocytes Absolute Auto 2.64 K/uL (0.90-2.90); Mean Corpuscular HGB Conc 33 gm/dL (32-36); Mean Corpuscular Hemoglobin 29 pg (26-34); Mean Corpuscular Volume 86 fL (80-100); Monocytes Percent Auto 5.9 % (0.0-11.0); Neutrophils Absolute Auto 3.34 K/uL (1.7-7.0); Neutrophils Percent Auto 51.8 % (42.0-72.0); Platelet Count* 317 K/uL (140-440); RDW Coefficient of Variation % 13.2 % (11.5-15.5); Red Blood Count 4.31 m/uL (4.00-5.20); White Blood Count* 6.44 K/uL (4.50-11.00)
[2022-09-24 19:11] LABS: Slide Review Reflex No
--- OUTSIDE RECORDS SUMMARY | 2022-09-24 19:14 | XMS_ITS | Continuity of Care Document ---
Author Name Unknown Organization [facility] Address [address] [address] [place] [address] Phone Care Team Providers Care Electrician Apprentice Name Role Phone Lalit Mari MD, Luca Unavailable Unavailabl e Advance Directives Directive Yes / No Effective Date File Name No Information Encounters Encounter Description Practice Location Reason(s) For Visit Diagnoses Date Provider Providers Copied on Encounter [facility], [address] [address], [place], [place], [id number], [place] tel:[phone] [facility] No Information Lalit Segovia. [address] [facility], [facility] [address], [place], [place], [id number], [place]. tel:[phone] Family History Family Member Type Diagnosis Age At Onset No Information Payers Payer name Insurance type Covered republican ID Authoriza tion(s) No Information Social History Type Description Quantity Date Captured Comments Sex Female Smoking Status No Information Chief Complaint And Reason For Visit No Information Reason For Referral Reason For Referral No Information History Of Present Illness Encounter Date Complaint History Of Prese nt Illness No Information Functional Status Date Functional Assessmen t No Information Instructions Date Instruction Additional Infor mation No Information Assessments Type Assessment Date No Information Patient Care Teams Name Effective Dates (start - stop) Status Members No Information
--- OUTSIDE RECORDS SUMMARY | 2022-09-24 19:14 | XMS_ITS | Continuity of Care Document ---
Author Name Unknown Organization [facility] Address [address] [address] [place] [address] Phone Care Team Providers Care Kettle Skimmer Name Role Phone Lalit Mari MD, Luca Unavailable Unavailabl e Advance Directives Directive Yes / No Effective Date File Name No Information Encounters Encounter Description Practice Location Reason(s) For Visit Diagnoses Date Provider Providers Copied on Encounter [facility], [address] [address], [place], [place], [id number], [place] tel:[phone] [facility] No Information Lalit Segovia. [address] [facility], [facility] [address], [place], [place], [id number], [place]. tel:[phone] Family History Family Member Type Diagnosis Age At Onset No Information Payers Payer name Insurance type Covered democrat ID Authoriza tion(s) No Information Social History [...]
--- OUTSIDE RECORDS SUMMARY | 2022-09-24 19:14 | XMS_ITS | Continuity of Care Document ---
Author Name Unknown Organization [facility] Address [address] [place] [address] Phone Care Team Providers Care Chief Sales Officer Name Role Phone Panvica PAC, Zac Unavailable Unavailable Allergies, Adverse Reactions, Alerts Substance Reaction Status Criticality No Known Allergies Active No Inform ation Medications Medication Instructions Dosage Effective Dates (start - stop) Status Comments NOVOLOG FLEXPEN (unknown strength) Not Available - Active Procedures Procedure Date Office/Outpatient Visit,[facility] 2019 Advance Directives Directive Yes / No Effective Date File Name No Information Encounters Encounter Description Practice Location Reason(s) For Visit Diagnoses Date Provider Providers Copied on Encounter [facility], [address], [place], [place], [id number], [place] tel:[phone] [facility] No Information 0 Panvica Zac. [facility], [address] [place] [address], [address], [place], [place], [id number] , [place]. tel:[phone] Office/Outpat ient Visit,[facility], [address], [place], [place], [id number], [place] tel:[phone] [facility] Low back painOther intervertebral disc displacement, lumbosacral regionOther intervertebral disc degeneration, lumbosacral region 0 Panvica Zac. [facility], [address], [address], [place], [place], [id number] , [place]. tel:[phone] Referring Provider: Karuna Olvera, [facility] [address], [place], [address]. tel:[phone] Family History Family Member Type Diagnosis Age At Onset No Information Payers Payer name Insurance type Covered green party ID Authorsandra mcfarland(s) [employer] ([employer]) [id number] Social History Type Description Quantity Date Captured [...]
--- OUTSIDE RECORDS SUMMARY | 2022-09-24 19:14 | XMS_ITS | Continuity of Care Document ---
Author Name Unknown Organization [facility] Address [address] [place] [address] Phone Care Team Providers Care Bin Packer Name Role Phone Panvica PAC, Zac Unavailable Unavailable Allergies, Adverse Reactions, Alerts Substance Reaction Status Criticality No Known Allergies Active No Inform ation Medications Medication Instructions Dosage Effective Dates (start - stop) Status Comments NOVOLOG FLEXPEN (unknown strength) Not Available - Active Procedures Procedure Date Office/Outpatient Visit,[facility] 2019 Advance Directives Directive Yes / No Effective Date File Name No Information Encounters Encounter Description Practice Location Reason(s) For Visit Diagnoses Date Provider Providers Copied on Encounter [facility], [address], [place], [place], [id number], [place] tel:[phone] [facility] No Information 0 Panvica Zac. [facility], [address] [place] [address], [address], [place], [place], [id number] , [place]. tel:[phone] Office/Outpat ient Visit,[facility], [address], [place], [place], [id number], [place] tel:[phone] [facility] Low back painOther intervertebral disc displacement, lumbosacral regionOther intervertebral disc degeneration, lumbosacral region 0 Panvica Zac. [facility], [address], [address], [place], [place], [id number] , [place]. tel:[phone] Referring Provider: Karuna Olvera, [facility] [address], [place], [address]. tel:[phone] Family History Family Member Type Diagnosis Age At Onset No Information Payers Payer name Insurance type Covered democrat ID Authorsandra mcfarland(s) [employer] ([employer]) [id number] Social History Type Description Quantity Date Captured [...]
--- OUTSIDE RECORDS SUMMARY | 2022-09-24 19:14 | XMS_ITS | Continuity of Care Document ---
Author Name Unknown Organization [facility] Address [address] [place] [address] Phone Care Team Providers Care Laundry Machine Operator Name Role Phone Debora Wang ODricia Unavailable Unavailable Allergies, Adverse Reactions, Alerts Substance Reaction Status Criticality No Known Allergies Active No Inform ation Medications Medication Instructions Dosage Effective Dates (start - stop) Status Comments Lantus 100 unit/mL subcutaneous solution - Active metformin 500 mg tablet - Active Procedures Procedure Date EYE EXAM, NEW PATIENT COMP Advance Directives Directive Yes / No Effective Date File Name No Information Encounters Encounter Description Practice Location Reason(s) For Visit Diagnoses Date Provider Providers Copied on Encounter [facility] , [address] [place] [address], [id number] , [place] tel: [phone] [facility] [address] Diabetic eye exam (chief complaint) correction (current) use of insulinType 2 diabetes mellitus without complicationsRetinal marcos 201 [address] Felipe Otoole. [address] [place] [address], [id number] , [place]. tel: [phone] Specialist : Apple Watts D.O., [facility] [address] [place], [address]. tel:[phone] Family History Family Member Type Diagnosis Age At Onset Father Problem (finding) Unknown Maternal grandmother Problem (finding) Diabetes mellit type 2 Mother Problem (finding) Unknown Payers Payer name Insurance type Covered republican ID Authoriza tion(s) No Information Social History Type Description Quantity Date Captured Comments Alcohol Use Details Unknown Caffeine Use Details Unknown Tobacco Use Status Never smoked tobacco 2016 Smoking Status Never smoker Non-Smoking Tobacco Use Details : No Details Available : No Details Available Sex Female Vital Signs Date / Time: Height Weight BMI Pulse Rate Blood Pressure Temperature Respiratory Rate Body Surface Area Head Circumference BMI percentile Pulse Ox Inhaled Ox 9:22 AM 106/70 mm[Hg] Chief Complaint And Reason For Visit From encounter dated '04/12/2016 09:30'. Diabetic eye exam (chief complaint). Description: The 31 year old female presents for Diabetic eye exam. She reports blurry vision at near OU x 1 year, gradual onset. She reports previous glasses wear as a child, but no glasses since then. Diagnosed with DM 2017 - 2 weeks ago. Managed with medications and insulin and followed by PCP every ~6weeks months. LBS: 112 mg/dL taken this morning, HbA1c: 14.2 taken 1 week ago. (+) occasional dryness, (-) flashes/floaters, (+) SANCHEZ 3-4/week temporal to occipitalPOHx: denies eye injuries or surgeriesEyedrops: noneLEE: 15yrs agoPMHx: dm dx 2 weeks agoLME: 2 weeks ago History Of Present Illness Encounter Date Complaint History Of Prese nt Illness Diabetic eye exam The 31 year ol d female presents for Diabetic eye exam. She reports blurry vision at near OU x 1 year, gradual onset. She reports previous glasses wear as a child, but no glasses since then. Diagnosed with DM 2017 - 2 weeks ago. Managed with medications and insulin and followed by PCP every ~6weeks months. LBS: 112 mg/dL taken this morning, HbA1c: 14.2 taken 1 week ago. (+) occasional dryness, (-) flashes/floaters, (+) SANCHEZ 3-4/week temporal to occipitalPOHx: denies eye injuries or surgeriesEyedrops: noneLEE: 15yrs agoPMHx: dm dx 2 weeks agoLME: 2 weeks ago Instructions Date Instruction Additional Infor migue Return in 1 year Aubrie Barragan for Comprehensive Eye Exam. Related to Type 2 diabetes mellitus without complications Follow up - Return i n 1 year with Aubrie Wang for Comprehensive Eye Exam. Related to Type 2 diabetes mellitus without complications Impression/Plan - Ed ucated patient on findings and condition. Monitor annually at [facility] or sooner with problems. Related to Retinal freckle Impression/Plan - Wo rking on control of blood sugar with medications and insulin, per patient. Continue as directed, monitor. Related to correction (current) use of insulin Impression/Plan - Ed ucated on clinical findings and condition. Discussed importance of good blood pressure and blood sugar control, compliance with medications, and regular follow-up with PCP. DM educational materials provided. Monitor annually at [facility] or sooner with changes in vision. 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 Bilateral.*began several weeks ago upon diagnosis*pre-treatment HbA1c: 14.2 % assessment correction (current) use of insul in assessment Type 2 diabetes mellitus without complications impression Retinal freckle: D49 .81. Right.*small CHRPE temporal midperiphery OD assessment Retinal freckle impression Type 2 diabetes chante itus without complications: E11.9. Bilateral.*no retinopathy OU
--- OUTSIDE RECORDS SUMMARY | 2022-09-24 19:14 | XMS_ITS | Continuity of Care Document ---
Author Name Unknown Organization [facility] Address [address] [place] [address] Phone Care Team Providers Care Federal Agent Name Role Phone Debora Wang ODricia Unavailable [...] Diagnoses Date Provider Providers Copied on Encounter [facility] , [address] [place] [address], [id number] , [place] tel: [phone] [facility] [address] Diabetic eye exam (chief complaint) [facility] (current) use of insulinType 2 diabetes mellitus without complicationsRetinal marcos 201 7 Felipe Otoole. [address] [place] [address], [id number] , [place]. tel: [phone] Specialist : Apple Watts D.O., [facility] [address] [place], [address]. tel:[phone] Family History Family Member Type Diagnosis Age At Onset Father Problem (finding) Unknown Maternal grandmother Problem (finding) Diabetes mellit type 2 Mother Problem (finding) Unknown Payers Payer name Insurance type Covered alliance party ID Authoriza tion(s) No Information Social History [...] mellitus without complications Impression/Plan - Ed ucated on clinical findings and condition. Discussed importance of good blood pressure and blood sugar control, compliance with medications, and regular follow-up with PCP. DM educational materials provided. Monitor annually at [facility] or sooner with changes in vision. Related to Type 2 diabetes mellitus without complications Impression/Plan - Wo rking on control of blood sugar with medications and insulin, per patient. Continue as directed, monitor. 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 Monitor annually at [facility] or sooner with problems. Related to Retinal freckle Follow up - Return i n 1 year with Aubrie Wang for Comprehensive Eye Exam. Related to Type 2 diabetes mellitus without complications Assessments Type Assessment Date impression buttermaker helper (current) use of insulin: Z79.4. Bilateral.*began several weeks ago upon diagnosis*pre-treatment HbA1c: 14.2 % assessment [facility] (current) use of insul in assessment Type 2 diabetes mellitus without complications impression Retinal freckle: D49 .81. Right.*small CHRPE temporal midperiphery OD assessment Retinal freckle impression Type 2 diabetes chante itus without complications: E11.9. Bilateral.*no retinopathy OU
[2022-09-24 19:34] LABS: Chloride* 105 mmol/L (96-114)
[2022-09-24 19:35] LABS: Albumin* 4.6 g/dL (3.3-5.0); Potassium* 3.7 mmol/L (3.6-5.1); Sodium* 139 mmol/L (135-149)
[2022-09-24 19:37] LABS: Creatinine* 0.9 mg/dL (0.5-1.5); Est. Creatinine Clearance* 67.03; Estimated Glomerular Filt Rate 84 ml/min
[2022-09-24 19:38] LABS: Alanine Aminotransferase* 29 U/L (4-35); Alkaline Phosphatase* 85 U/L (40-150); Aspartate Amino Transferase* 34 U/L (12-35); Bilirubin Total* 0.3 mg/dL (0.1-1.5); Blood Urea Nitrogen* 10 mg/dL (5-24); Calcium* 9.3 mg/dL (8.4-10.6); Carbon Dioxide* 23 mmol/L (20-32); Glucose* 65 mg/dL (60-115); Total Protein* 7.9 g/dL (6.0-8.3)
--- NOTE | 2022-09-24 20:00 | ED.NURSE ---
POC glucose obtained with glucometer, blood sugar of 67. Pt's Dexcom checked at same time and shows 79. MD updated.
[2022-09-24 20:11] LABS: Appearance Urine Clear (Clear); Bilirubin Urine Negative (Negative); Blood Urine Negative (Negative); Color Urine Yellow (Yellow); Glucose Urine Negative (Negative); Ketones Urine Negative (Negative); Leukocyte Esterase Urine Negative (Negative); Nitrite Urine Negative (Negative); Protein Urine 1+ (Negative); Urobilinogen Urine 0.2 (0.2-1.0); pH Urine 5.5 (5.0-8.5)
[2022-09-24 20:28] LABS: RBC Urine 0-2 (0-2); Squamous Epithelial Cell Urine Few (None-Few); WBC Urine 0-2 (0-5)
[2022-09-27 12:58] LABS: Beta-Hydroxybutyric Acid 0.7 mg/dL (0.0-3.0)
[2022-10-10 13:03] LABS: Glucose, Point-of-Care* 116 mg/dl (60-115)
== END 2022-09-24 21:40 | disposition home or self-care (01) ==
PROVIDERS: Emergency Provider Student in an Organized Health Care Education/Training Program; PCP Family Medicine
DX: E10.649 Type 1 diabetes mellitus with hypoglycemia without coma (principal); R56.9 Unspecified convulsions; S09.90XA Unspecified injury of head, initial encounter
CPT/HCPCS: 36415; 70450; 80053; 81003; 81015; 82010; 82803; 82947; 82962; 83605; 85025; 96360; 99283; 99284; 99285; J7030

== ENCOUNTER 2022-11-20 09:17 | Outpatient (CLI) | payer MEDICARE, BC, SELFPAY | END 2022-11-20 09:18 | disposition home or self-care (01) | LOC: INJ CL 09:17 | PROVIDERS: PCP Family Medicine; Visit Provider Family Medicine | DX: M51.36 Other intervertebral disc degeneration, lumbar region (principal); M54.16 Radiculopathy, lumbar region | CPT/HCPCS: 62323; J0702; Q9966 ==